=== PATIENT | female | born 1940 | race Hispanic/Latino ===

== ENCOUNTER 2019-04-15 20:44 | Emergency (ER) | payer MEDICARE, SELFPAY ==
[2019-04-15 20:54] VITALS: BP 173/88; PULSE 64; RESP 16; TEMP 36.4; O2SAT 98
--- NOTE | 2019-04-15 21:14 | ED_ITS ---
HPI - Dizziness General Chief Complaint: Dizziness Stated Complaint: dizzy spells Time Seen by Provider: 04/15/19 20:53 Source: patient Mode of arrival: ambulatory Limitations: no limitations History of Present Illness HPI Narrative: Patient is a 78-year-old female who presents with dizzy spells. She states that today she has been having dizzy spells that happen quite frequently but seem to be positional. She says she actually feels it when she is lying down does not really feel it when she is standing up or walking. She denies passing out. She says they last UA for from seconds to minutes. She has been drinking water she has eaten her normally she denies any nausea or vomiting. She has no chest pain or heart palpitations. She has no numbness tingling or weakness. No changes in vision. She does not feel it right now. I did actually have her sit up and she felt it briefly she was able lay back down and it went away. MD complaint: dizziness Description: lightheadedness Related Data Home Medications Medication Instructions Recorded Confirmed VITAMIN D (Vitamin D3) 1,000 unit PO QDAY #0 11/25/10 esomeprazole magnesium [Nexium] 40 mg PO QDAY #0 11/25/10 Previous Rx's Medication Instructions Recorded amoxicillin 500 mg PO Q8H #26 cap 12/09/16 meclizine 25 mg PO TID PRN #10 tab 04/15/19 Allergies Allergy/AdvReac Type Severity Reaction Status Date / Time No Known Allergies Allergy Uncoded 04/15/19 20:58 Review of Systems Review of Systems ROS Unobtainable: All systems reviewed & are unremarkable except as noted in HPI and below Constitutional Constitutional: Denies chills, Denies fever(s), Denies headache(s), Denies lethargy and Denies weakness ENT Ears, Nose, Mouth, and Throat: Reports dizziness and Denies headache(s) Cardiovascular Cardiovascular: Denies chest pain, Denies syncope, Denies rapid heart rate, Denies irregular heart rhythm, Reports lightheadedness, Denies palpitations, Denies dyspnea, Denies dyspnea on exertion and Denies orthopnea Respiratory Respiratory: Denies cough, Denies dyspnea, Denies dyspnea on exertion and Denies wheezing Gastrointestinal Gastrointestinal: Denies abdominal pain, Denies change in bowel habits, Denies diarrhea, Denies nausea and Denies vomiting Genitourinary Genitourinary: Denies hematuria, Denies flank pain, Denies urinary incontinence and Denies urinary urgency Musculoskeletal Musculoskeletal: Denies abnormal gait, Denies back pain, Denies muscle weakness, Denies numbness and Denies tingling Integumentary/Breasts Skin/Breast: Denies pruritus, Denies erythema, Denies rash and Denies wounds Neurologic Neurologic: Denies abnormal gait, Reports dizziness, Denies syncope, Denies headache(s), Denies lack of coordination, Denies focal weakness, Denies numbness, Denies tingling and Denies weakness Endocrine Endocrine: Denies palpitations Allergic/Immunologic Allergic/Immunologic: Denies wheezing [facility] Medical History Patient denies medical problems (Acute) Social History Smoking Status: Former smoker Social History Smoking Status: Former smoker Exam Initial Vital Signs Initial Vital Signs: Vital Signs Temperature 97.5 F L 04/15/19 20:54 Pulse Rate 64 04/15/19 20:54 Respiratory Rate 16 04/15/19 20:54 Blood Pressure 173/88 H 04/15/19 20:54 Pulse Oximetry 98 04/15/19 20:54 GENERAL: Well-appearing, well-nourished and in no acute distress. HEENT: Head atraumatic,EOMI, pupils reactive, face symmetric, moist mucous membranes CARDIOVASCULAR: Regular rate and rhythm without murmurs, rubs or gallops. RESPIRATORY: Breath sounds equal bilaterally, no wheezes rales or rhonchi. ABDOMEN: Soft, nontender. Normoactive bowel sounds all 4 quadrants. No guarding or rebound. EXTREMITIES: Normal range of motion, no clubbing or edema. Neurovascularly intact NEUROLOGICAL: Alert and oriented x4.Normal gait and speech. Cranial nerves II through XII grossly intact. Good rfitec-yk-oaip, good syxk-yk-ldbs, strength equal bilaterally, no dysarthria or aphasia, sensation in tact to soft touch bilaterally, no visual changes, no facial droop SKIN: Warm, dry, no laceration, no petechiae, no rashes or lesions. Scores NIH Stroke Scale Level of Conciousness: Alert, keenly responsive Ask month/age: Answers both questions correctly. Open/close eyes, close hand: Performs both tasks correctly Best gaze horizontal: Normal Visual leone: No visual loss Facial palsy: Normal symetrical movement Left arm drift: No drift for full 10 sec Right arm drift: No drift for full 10 sec Left leg drift: No drift for full 10 sec Right leg drift: No drift for full 10 sec Limb ataxia: Absent Sensory on face/arms/legs: Normal, no sensory loss Best language: No aphasia, normal Dysarthria: Normal Extinction or inattention: No abnormality Total NIH Stroke scale score: 0 Course Orders Ordered: ED Orders 04/15/19 21:07 Complete Blood Count AUTO DIFF Stat Comprehensive Metabolic Panel Stat Discontinued Medications Sodium Chloride (Normal Saline 0.9%) 1,000 mls @ 1,000 mls/hr IV CONT OREN Last Infusion: 04/15/19 22:10 Dose: 1,000 mls/hr Documented by: Admin: 04/15/19 21:16 Dose: 1,000 mls/hr Documented by: MMCFARL Ibuprofen (Advil) 800 mg PO NOW ONE Stop: 04/15/19 22:07 Last Admin: 04/15/19 22:10 Dose: 800 mg Documented by: MMCFARL Meclizine HCl (Antivert) 25 mg PO NOW ONE Stop: 04/15/19 22:07 Last Admin: 04/15/19 22:10 Dose: 25 mg Documented by: MMCFARL Vital Signs Vital signs: Vital Signs - 8 hr 04/15/19 20:54 04/15/19 21:24 Temperature 97.5 F L Pulse Rate 64 60 Respiratory Rate 16 14 Blood Pressure 173/88 H Blood Pressure [Left Arm] 136/70 Pulse Oximetry 98 100 MDM - Dizziness Lab Data Attestation: I reviewed the patient's lab results. Result diagrams: 04/15/19 21:07 04/15/19 21:07 Labs: Lab Results 04/15/19 04/15/19 Range/Units 21:07 21:07 WBC 6.5 (4.5-11.0) X10^3/uL RBC 4.28 (4.0-5.2) X10^6/uL Hgb 13.5 (12.0-16.0) g/dL Hct 40.2 (36-46) % MCV 93.9 (80-100) fL MCH 31.4 (26-34) PG MCHC 33.5 (30-36) % RDW 13.2 (11.6-14.8) % Plt Count 169 (150-400) X10^3/uL Neut % (Auto) 41.5 L (50-75) % Lymph % (Auto) 47.2 H (25-40) % [place] % (Auto) 8.2 (3-14) % Eos % (Auto) 2.3 (2-4) % Baso % (Auto) 0.8 (0-2) % Neut # (Auto) 2700 (6215-0055) /uL Lymph # (Auto) 3100 (1448-6782) /uL [place] # (Auto) 500 (0-900) /uL Eos # (Auto) 200 (0-450) /uL Baso # (Auto) 100 (0-100) /uL Sodium 139 (137-145) mmol/L Potassium 4.1 (3.4-5.1) mmol/L Chloride 106 (98-107) mmol/L Carbon Dioxide 25 (22-32) mmol/L BUN 27 H (7-17) mg/dL Creatinine 0.90 (0.52-1.04) mg/dL Estimated GFR > 60.0 (>60) mL/min BUN/Creatinine Ratio 30.0 H (6-22) Glucose 102 (80-110) mg/dL Calcium 9.4 (8.4-10.2) mg/dL Total Bilirubin 0.4 (0.2-1.3) mg/dL AST 21 (14-36) IU/L ALT 12 (9-52) IU/L Alkaline Phosphatase 44 (38-126) U/L Total Protein 7.2 (6.3-8.2) g/dL Albumin 4.2 (3.5-5.0) g/dL Globulin 3.0 (1.7-4.1) g/dL Albumin/Globulin Ratio 1.4 (1.0-2.8) ECG Data Attestation: I personally reviewed and interpreted this ECG as follows: Prior ECG tracings: not available for review Interpretation: Normal sinus rhythm rate 64 p.r. interval 154 QRS [address] changes no T-wave inversions [facility] Narrative Medical decision making narrative: Patient symptoms are worse whenever she sits up. There reproducible in the emergency department. She is able to roll over onto her side and curl up in position to try and fall sleep. She is able to stand up and ambulate without any difficulty no dizziness. At this time this is likely vertigo. Blood work EKG within. Patient feels ready and able to home. She is given prescription for meclizine needed Discharge Plan Departure Patient Disposition: Home Clinical Impression: Benign paroxysmal vertigo Qualifiers: Laterality: unspecified laterality Qualified Code(s): H81.10 - Benign paroxysmal vertigo, unspecified ear Discharge Date/Time: 04/15/19 22:16 Instructions: DI for Dizziness-Nonvertigo Activity Restrictions/Additional Instructions: *You have been diagnosed with vertigo *What to do: Blood work today is reassuring *Continue to take medications as directed Meclizine 25 mg every 8 hours if needed for disease *Follow up with your primary care provider in 2-3 days *Return to ER if you should have persistent dizziness, weakness, numbness, T or any new, worsening or concerning symptoms Prescriptions: New meclizine 25 mg tablet 25 mg PO TID PRN (Reason: dizziness) Qty: 10 RF: 0 No Action esomeprazole magnesium [Nexium] 40 MG capsule,delayed release(DR/EC) 40 mg PO QDAY Qty: 0 RF: 0 VITAMIN D (Vitamin D3) 1,000 unit PO QDAY Qty: 0 RF: 0 amoxicillin 500 MG capsule 500 mg PO Q8H Qty: 26 RF: 0 Referrals: [facility] [Outside]
[2019-04-15] MEDS: SODIUM CHLORIDE 0.9% 1,000 ML 1000 ML IV (21:16)
[2019-04-15 21:20] LABS: Add Manual Diff / Slide Review NO; Basophils Absolute Auto 100 /uL (0-100); Basophils Percent Auto 0.8 % (0-2); Eosinophils Absolute Auto 200 /uL (0-450); Eosinophils Percent Auto 2.3 % (2-4); Hematocrit 40.2 % (36-46); Hemoglobin 13.5 g/dL (12.0-16.0); Lymphocytes Absolute Auto 3100 /uL (1100-4500); Lymphocytes Percent Auto 47.2 % (25-40); Mean Corpuscular HGB Conc 33.5 % (30-36); Mean Corpuscular Hemoglobin 31.4 PG (26-34); Mean Corpuscular Volume 93.9 fL (80-100); Monocytes Absolute Auto 500 /uL (0-900); Monocytes Percent Auto 8.2 % (3-14); Neutrophils Absolute Auto 2700 /uL (1500-7000); Neutrophils Percent Auto 41.5 % (50-75); Platelet Count 169 X10^3/uL (150-400); Red Blood Cell Count 4.28 X10^6/uL (4.0-5.2); Red Cell Distribution Width 13.2 % (11.6-14.8); White Blood Cell Count 6.5 X10^3/uL (4.5-11.0)
[2019-04-15 21:24] VITALS: BP 136/70; PULSE 60; RESP 14; O2SAT 100
[2019-04-15 21:24] LABS: Alanine Aminotransferase 12 IU/L (9-52); Albumin 4.2 g/dL (3.5-5.0); Albumin Globulin Ratio 1.4 (1.0-2.8); Alkaline Phosphatase 44 U/L (38-126); Aspartate Aminotransferase 21 IU/L (14-36); Bilirubin Total 0.4 mg/dL (0.2-1.3); Blood Urea Nitrogen 27 mg/dL (7-17); Calcium 9.4 mg/dL (8.4-10.2); Carbon Dioxide 25 mmol/L (22-32); Chloride 106 mmol/L (98-107); Estimated Glomerular Filt Rate > 60.0 mL/min (>60); Glucose 102 mg/dL (80-110); HEMOLYSIS < 15 (0-50); Potassium 4.1 mmol/L (3.4-5.1); Sodium 139 mmol/L (137-145); Total Protein 7.2 g/dL (6.3-8.2)
[2019-04-15] MEDS: IBUPROFEN 400 MG TABLET 800 MG PO (22:10)
[2019-04-15] MEDS: MECLIZINE HCL 12.5 MG TABLET 25 MG PO (22:10)
== END 2019-04-15 22:16 | disposition home or self-care (01) ==
PROVIDERS: Emergency Provider Emergency Medicine
DX: H81.10 Benign paroxysmal vertigo, unspecified ear (principal)
CPT/HCPCS: 80053; 85025; 93005; 96360; 99283; 99284

== ENCOUNTER 2020-12-27 18:09 | Emergency (ER) | payer MEDICARE, SELFPAY ==
--- NOTE | 2020-12-27 | DI.RAD.S_ITS ---
PROCEDURE: XR HAND RT MIN 3V INDICATIONS: RIGHT HAND PAIN POST FALL TECHNIQUE: 3 views of the hand(s) acquired. COMPARISON: None. FINDINGS: Bones: No fractures or dislocations. Carpal bones are normally aligned. No suspicious bony lesions. Soft tissues: No suspicious soft tissue calcifications. IMPRESSION: No fracture. No acute osseous lesion. If symptoms and/or clinical suspicion for pathology persists, further assessment with repeat radiographs (7-10 days) or advanced imaging (e.g. CT, MRI or bone scan) should be considered. Dictated by: Azucena Palencia MD, PhD on 12/27/2020 at 18:51 Approved by: Azucena Palencia MD, PhD on 12/27/2020 at 18:52
[2020-12-27 18:12] VITALS: BP 151/73; PULSE 85; RESP 22; TEMP 36.7; O2SAT 97
--- NOTE | 2020-12-27 18:19 | DI.CT.S_ITS ---
PROCEDURE: CT FACIAL BONES WO CON INDICATIONS: fall TECHNIQUE: Noncontrast 2.5 mm thick axial images acquired from the mandible through the frontal sinuses, with coronal and sagittal reformatting. For radiation dose reduction, the following was used: automated exposure control, adjustment of mA and/or kV according to patient size. COMPARISON: [facility], CT, CT HEAD/BRAIN WO CON, 12/27/2020, 18:32. FINDINGS: Image quality: Excellent. Bones and teeth: Orbital barahona are intact. Sinus barahona show no fracture or deformity. Minimally displaced left nasal bone fracture. Nasal septum is intact. Visualized portions of the mandible demonstrate no fractures or subluxation. Zygomatic arches are intact. Pterygoid plates are intact. Visualized portions of the skull base and auditory canals are intact. Sinuses: Mucosal thickening noted in the floor of the right maxillary sinus. Right mastoid air cells are aerated. Postsurgical changes noted in the left mastoids. Soft tissues: No edema, masses, or fluid collections. No enlarged lymph nodes. No soft tissue lacerations or debris. Vascular: Visualized vascular structures appear normal in the absence of contrast. Bony vascular foramina and canals are intact. IMPRESSION: 1. Minimally displaced left nasal bone fracture. 2. Postsurgical changes in the left mastoids. Dictated by: Azucena Palencia MD, PhD on 12/27/2020 at 19:18 Approved by: Azucena Palencia MD, PhD on 12/27/2020 at 19:23
--- NOTE | 2020-12-27 18:19 | DI.CT.S_ITS ---
PROCEDURE: CT CERVICAL SPINE WO CON INDICATIONS: fall TECHNIQUE: Noncontrast 3 mm thick sections acquired from the skull base to the T4 level. Sagittal and coronal reformats were then constructed. For radiation dose reduction, the following was used: automated exposure control, adjustment of mA and/or kV according to patient size. COMPARISON: [facility], CT, CT HEAD/BRAIN WO CON, 12/27/2020, 18:32. FINDINGS: Image quality: Excellent. Bones: No fractures or dislocations. Visualized superior ribs are intact. Postsurgical changes compatible with partial left mastoidectomy noted. Spine degenerative disc disease and facet arthropathy. Soft tissues: Prevertebral soft tissues are normal in thickness. Dystrophic soft tissue calcification noted posterior to the C6 spinous process. No paravertebral hematomas. No apical pneumothoraces. IMPRESSION: No fracture. No acute osseous lesion. If symptoms and/or clinical suspicion for pathology persists, evaluation with MRI should be considered for further assessment. Dictated by: Azucena Palencia MD, PhD on 12/27/2020 at 19:12 Approved by: Azucena Palencia MD, PhD on 12/27/2020 at 19:17
--- NOTE | 2020-12-27 18:19 | DI.CT.S_ITS ---
PROCEDURE: CT HEAD/BRAIN WO CON INDICATIONS: fall TECHNIQUE: Noncontrast 4.5 mm thick angled axial sections acquired from the foramen magnum to the vertex, with coronal and sagittal reformats. For radiation dose reduction, the following was used: automated exposure control, adjustment of mA and/or kV according to patient size. COMPARISON: None. FINDINGS: Image quality: Excellent. CSF spaces: Basal cisterns are patent. No extra-axial fluid collections. The ventricles are symmetric in size and shape. Brain: No intracranial bleeds or masses. There is cerebral volume loss for age, with resultant ventricular and sulcal prominence. There are periventricular and deep white matter chronic small vessel ischemic changes. There is intracranial internal carotid artery atherosclerosis. Skull and face: Calvarium and visualized facial bones appear intact, without suspicious lesions. 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 Sinuses: Visualized sinuses and mastoids are clear. IMPRESSION: No acute intracranial disease process. Dictated by: Azucena Palencia MD, PhD on 12/27/2020 at 18:50 Approved by: Azucena Palencia MD, PhD on 12/27/2020 at 18:51
--- NOTE | 2020-12-27 19:46 | ED.FALL ---
HPI - Fall General Chief Complaint: Fall Stated Complaint: FALL HIT FACE Time Seen by Provider: 12/27/20 19:21 Source: patient Mode of arrival: Ambulatory History of Present Illness HPI Narrative: Patient is a rommel 80-year-old female who presents with a fall on her face. She was walking her daughter's dog when the dog got away she fell forward and hit her face. No loss of consciousness no nausea or vomiting. She has an abrasion on her nose and had some epistaxis she also complains of right knuckle and hand pain but is moving quite well. No neck pain she is not on any antiplatelet or anticoagulation medication MD complaint: fall Onset (ago): hour(s) Fall from: standing Place fall occurred: street Related Data Home Medications Medication Instructions Recorded Confirmed VITAMIN D (Vitamin D3) 1,000 unit PO QDAY #0 11/25/10 esomeprazole magnesium [Nexium] 40 mg PO QDAY #0 11/25/10 Previous Rx's Medication Instructions Recorded amoxicillin 500 mg PO Q8H #26 cap 12/09/16 meclizine 25 mg PO TID PRN #10 tab 04/15/19 Allergies Allergy/AdvReac Type Severity Reaction Status Date / Time No Known Allergies Allergy Uncoded 04/15/19 20:58 Review of Systems Review of Systems Narrative: GENERAL: Denies chills, fatigue, malaise, fever, sweats, travel HEENT: Epistaxis nose pain RESPIRATORY: Denies dyspnea, cough, wheezing, hemoptysis, sputum. CARDIOVASCULAR: Denies chest pain, palpitations, orthopnea, edema GASTROINTESTINAL: Denies nausea, vomiting, abdominal pain, diarrhea, constipation, melena. : Denies dysuria, frequency, incontinence, hematuria, urinary retention, flank pain. MUSCULOSKELETAL: See HPI SKIN: No rash, no erythema, no pruritus NEUROLOGIC: Denies weakness, dizziness, headache, numbness, change in speech, confusion PSYCHIATRIC: No concerning psychosocial issues. 12 point review of systems is negative except for those stated above and HPI Patient History Medical History (Updated 12/28/20 @ 08:05 by Nelly Shea DO) Patient denies medical problems Social History Smoking Status: Former smoker Smoking Status: Former smoker alcohol intake frequency: 0-2 drinks per day Substance Use Type: does not use Exam Initial Vital Signs Initial Vital Signs: Vital Signs Temperature 98.1 F 12/27/20 18:12 Pulse Rate 85 12/27/20 18:12 Respiratory Rate 22 12/27/20 18:12 Blood Pressure 151/73 H 12/27/20 18:12 Pulse Oximetry 97 12/27/20 18:12 GENERAL: Alert very pleasant well-appearing 80-year-old female HEENT: Head atraumatic,EOMI, pupils reactive, face symmetric, [moist] mucous membranes Abrasion noted on nose epistaxis now stopping controlled no septal hematoma NECK: No vertebral tenderness no step-off CARDIOVASCULAR: Regular rate and rhythm without murmurs, rubs or gallops. RESPIRATORY: Breath sounds equal bilaterally, no wheezes rales or rhonchi. ABDOMEN: Soft, nontender. Normoactive bowel sounds all 4 quadrants. No guarding or rebound. EXTREMITIES: Normal range of motion, no clubbing or edema. Neurovascularly intact Right wrist no gross bony deformity NEUROLOGICAL: Alert and oriented x4.Normal gait and speech. Cranial nerves II through XII grossly intact. [employer] strength equal bilaterally SKIN: Warm, dry, no laceration, no petechiae, no rashes or lesions. Course Orders Ordered: ED Orders 12/27/20 18:19 CT cervical spine wo con Stat CT facial bones wo con Stat CT head/brain wo con Stat Vital Signs Vital signs: Vital Signs - 8 hr 12/27/20 18:12 Temperature 98.1 F Pulse Rate 85 Respiratory Rate 22 Blood Pressure 151/73 H Pulse Oximetry 97 MDM - Fall Imaging Data CT scan - head: Radiologist's Impression: PROCEDURE: CT HEAD/BRAIN WO CON INDICATIONS: fall TECHNIQUE: Noncontrast 4.5 mm thick angled axial sections acquired from the foramen magnum to the vertex, with coronal and sagittal reformats. For radiation dose reduction, the following was used: automated exposure control, adjustment of mA and/or kV according to patient size. COMPARISON: None. FINDINGS: Image quality: Excellent. CSF spaces: Basal cisterns are patent. No extra-axial fluid collections. The ventricles are symmetric in size and shape. Brain: No intracranial bleeds or masses. There is cerebral volume loss for age, with resultant ventricular and sulcal prominence. There are periventricular and deep white matter chronic small vessel ischemic changes. There is intracranial internal carotid artery atherosclerosis. Skull and face: Calvarium and visualized facial bones appear intact, without suspicious lesions. 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 Sinuses: Visualized sinuses and mastoids are clear. IMPRESSION: No acute intracranial disease process. Dictated by: Azucena Palencia MD, PhD on 12/27/2020 at 18:50 CT - cervical spine: Radiologist's Impression: PROCEDURE: CT CERVICAL SPINE WO CON INDICATIONS: fall TECHNIQUE: Noncontrast 3 mm thick sections acquired from the skull base to the T4 level. Sagittal and coronal reformats were then constructed. For radiation dose reduction, the following was used: automated exposure control, adjustment of mA and/or kV according to patient size. COMPARISON: [facility] CT, CT HEAD/BRAIN WO CON, 12/27/2020, 18:32. FINDINGS: Image quality: Excellent. Bones: No fractures or dislocations. Visualized superior ribs are intact. Postsurgical changes compatible with partial left mastoidectomy noted. Spine degenerative disc disease and facet arthropathy. Soft tissues: Prevertebral soft tissues are normal in thickness. Dystrophic soft tissue calcification noted posterior to the C6 spinous process. No paravertebral hematomas. No apical pneumothoraces. IMPRESSION: No fracture. No acute osseous lesion. If symptoms and/or clinical suspicion for pathology persists, evaluation with MRI should be considered for further assessment. Dictated by: Azucena Palencia MD, PhD on 12/27/2020 at 19:12 ct Face: Radiologist's Impression: PROCEDURE: CT FACIAL BONES WO CON INDICATIONS: fall TECHNIQUE: Noncontrast 2.5 mm thick axial images acquired from the mandible through the frontal sinuses, with coronal and sagittal reformatting. For radiation dose reduction, the following was used: automated exposure control, adjustment of mA and/or kV according to patient size. COMPARISON: [facility], CT, CT HEAD/BRAIN WO CON, 12/27/2020, 18:32. FINDINGS: Image quality: Excellent. Bones and teeth: Orbital barahona are intact. Sinus barahona show no fracture or deformity. Minimally displaced left nasal bone fracture. Nasal septum is intact. Visualized portions of the mandible demonstrate no fractures or subluxation. Zygomatic arches are intact. Pterygoid plates are intact. Visualized portions of the skull base and auditory canals are intact. Sinuses: Mucosal thickening noted in the floor of the right maxillary sinus. Right mastoid air cells are aerated. Postsurgical changes noted in the left mastoids. Soft tissues: No edema, masses, or fluid collections. No enlarged lymph nodes. No soft tissue lacerations or debris. Vascular: Visualized vascular structures appear normal in the absence of contrast. Bony vascular foramina and canals are intact. IMPRESSION: 1. Minimally displaced left nasal bone fracture. 2. Postsurgical changes in the left mastoids. Dictated by: Azucena Palencia MD, PhD on 12/27/2020 at 19:18 Extremity x-ray #1: Radiologist's Impression: PROCEDURE: XR HAND RT MIN 3V INDICATIONS: RIGHT HAND PAIN POST FALL TECHNIQUE: 3 views of the hand(s) acquired. COMPARISON: None. FINDINGS: Bones: No fractures or dislocations. Carpal bones are normally aligned. No suspicious bony lesions. Soft tissues: No suspicious soft tissue calcifications. IMPRESSION: No fracture. No acute osseous lesion. If symptoms and/or clinical suspicion for pathology persists, further assessment with repeat radiographs (7-10 days) or advanced imaging (e.g. CT, MRI or bone scan) should be considered. Dictated by: Azucena Palencia MD, PhD on 12/27/2020 at 18:51 [facility] Narrative Medical decision making narrative: The patient overall appears very well she has a small abrasion on the bridge of her nose. Found to have mildly displaced nasal bone fracture. I discussed all findings with the patient, Education has been performed regarding treatment plan, diagnosis, warning signs and symptoms and all concerns have been addressed. Verbally agree with and understood all of the above. Discharge Plan Departure Patient Disposition: Home Clinical Impression: Closed fracture nasal bone Qualifiers: Encounter type: initial encounter Qualified Code(s): S02.2XXA - Fracture of nasal bones, initial encounter for closed fracture Closed head injury Qualifiers: Encounter type: initial encounter Qualified Code(s): S09.90XA - Unspecified injury of head, initial encounter Instructions: Nose Fracture, Concussion Activity Restrictions/Additional Instructions: *You have been diagnosed with nose fracture, *What to do: Do not blow nose dap only. Your his nose will heal on its own, you may follow-up with ENT as needed treated closed head injury. You may noticed that you have headache and some mild nausea and be sensitive to light these are associated with concussion syndrome *Continue to take medications as directed Tylenol 1000 mg 6 hours if needed for [id number] pain Ibuprofen 600 mg every 6 hours if needed for [id number] *Follow up with your primary care provider in 2-3 days Call ENT tomorrow schedule follow-up appointment in about 1 week *Return to ER if you should have worsening headache persistent vomiting, weakness, confusion or any new, worsening or concerning symptoms Prescriptions: No Action esomeprazole magnesium [Nexium] 40 MG capsule,delayed release(DR/EC) 40 mg PO QDAY Qty: 0 RF: 0 VITAMIN D (Vitamin D3) 1,000 unit PO QDAY Qty: 0 RF: 0 amoxicillin 500 MG capsule 500 mg PO Q8H Qty: 26 RF: 0 meclizine 25 mg tablet 25 mg PO TID PRN (Reason: dizziness) Qty: 10 RF: 0
[2020-12-27 20:18] VITALS: BP 137/70; PULSE 69; RESP 12; O2SAT 98
== END 2020-12-27 20:18 | disposition home or self-care (01) ==
PROVIDERS: Emergency Provider Emergency Medicine
DX: S02.2XXA Fracture of nasal bones, initial encounter for closed fracture (principal); S09.90XA Unspecified injury of head, initial encounter; W19.XXXA Unspecified fall, initial encounter
CPT/HCPCS: 70450; 70486; 72125; 73130; 99283; 99284; Q9967

== ENCOUNTER → 2021-04-19 12:23 | Outpatient (CLI) | payer MEDICARE, SELFPAY | PROVIDERS: PCP Internal Medicine; Referring Provider Internal Medicine; Visit Provider Internal Medicine | DX: M85.852 Other specified disorders of bone density and structure, left thigh (principal); M85.851 Other specified disorders of bone density and structure, right thigh; M85.88 Other specified disorders of bone density and structure, other site | CPT/HCPCS: 77080 ==

== ENCOUNTER 2022-03-27 17:04 | Emergency (ER) | payer OTHER, SELFPAY ==
[2022-03-27 17:11] VITALS: BP 137/64; PULSE 92; RESP 16; TEMP 35.5; O2SAT 98; BMI 26.4
--- NOTE | 2022-03-27 17:14 | DI.RAD.S_ITS ---
PROCEDURE: XR CHEST 2V INDICATIONS: persistant cough one week TECHNIQUE: 2 views of the chest were acquired. COMPARISON: None. FINDINGS: Surgical changes and devices: None. Lungs and pleura: Lungs are clear. No pleural effusions or pneumothorax. Mediastinum: Mediastinal contours are normal. Heart size is normal. Bones and chest wall: No suspicious bony abnormalities. Soft tissues appear unremarkable. IMPRESSION: No acute cardiopulmonary abnormalities or focal airspace disease. Dictated by: Juan Gonzalez M.D. on 03/27/2022 at 17:31 Approved by: Juan Gonzalez M.D. on 03/27/2022 at 17:31
[2022-03-27 17:40] LABS: COVID19 -Nasal RAPID Negative (Negative)
== END 2022-03-27 21:10 | disposition left against medical advice (07) ==
PROVIDERS: Family Medicine Addiction Medicine; Emergency Provider Emergency Medicine; PCP Internal Medicine
DX: R50.9 Fever, unspecified (principal); Z20.822 Contact with and (suspected) exposure to COVID-19
CPT/HCPCS: 71046; 87635; 99283; C9803

== ENCOUNTER → 2022-04-06 11:10 | Outpatient (CLI) | payer MEDICARE, SELFPAY | PROVIDERS: PCP Internal Medicine; Visit Provider Registered Nurse | DX: B97.89 Other viral agents as the cause of diseases classified elsewhere (principal); J02.8 Acute pharyngitis due to other specified organisms | CPT/HCPCS: 87070 ==

== ENCOUNTER → 2022-09-17 11:30 | Outpatient (CLI) | payer MEDICARE, SELFPAY ==
[2022-09-17 12:33] LABS: Influenza A - CEPHEID Flu A NEGATIVE (NEGATIVE); Influenza B - CEPHEID Flu B NEGATIVE (NEGATIVE); Respiratory Syncytial Virus Negative (Negative)
[2022-09-17 13:06] LABS: COVID-19 CEPHEID 4-PLEX PCR Negative (Negative)
== END ==
PROVIDERS: PCP Internal Medicine; Visit Provider Nurse Practitioner Family
DX: J02.9 Acute pharyngitis, unspecified (principal); R05.8 Other specified cough
CPT/HCPCS: 0241U

== ENCOUNTER → 2023-08-14 17:30 | Outpatient (CLI) | payer OTHER, SELFPAY | PROVIDERS: PCP Internal Medicine; Visit Provider Physician Assistant | DX: J02.9 Acute pharyngitis, unspecified (principal) | CPT/HCPCS: 87070 ==

== ENCOUNTER → 2023-11-22 09:54 | Outpatient (CLI) | payer MEDICARE, SELFPAY ==
--- NOTE | 2023-11-22 09:55 | DI.RAD.S_ITS ---
PROCEDURE: XR DEXA AXIAL SKELETON INDICATIONS: post menopausal osteoporosis COMPARISON: CR, XR DEXA AXIAL SKELETON, 04/19/2021, 12:55. FINDINGS: Lumbar Spine: L1, L2, L4 Bone mineral density 0.950 g/cm2, T score -0.8. Left Hip: Bone mineral density 0.812 g/cm2, T score -1.1. Left Femoral Neck: Bone mineral density 0.595 g/cm2, T score -2.3. Right Hip: Bone mineral density 0.777 g/cm2, T score -1.3. Right Femoral Neck: Bone mineral density 0.600 g/cm2, T score -2.2. Fracture Risk Calculation (when applicable): 10-year fracture risk of a major osteoporotic fracture 17% and of a hip fracture 5.6%. (T score greater or equal to -1.0 to: NORMAL) (T score from -1.1 to -2.4: OSTEOPENIA) (T score less than or equal to -2.5: OSTEOPOROSIS) IMPRESSION: Osteopenia Follow-up guidelines as follows: Osteoporosis: Consider a repeat DEXA and Vertebral Fracture Assessment (VFA) exam in 2 years or sooner if medically necessary, to reassess this patient's status. Osteopenia: Consider a repeat DEXA in 2-3 years to reassess this patient's status, or if there is a new clinical indication. Normal: Consider a repeat DEXA in 5 years or sooner, or if there is a new clinical indication. Dictated by: Jason Valle M.D. on 11/22/2023 at 22:02 Approved by: Jason Valle M.D. on 11/22/2023 at 22:04
== END ==
PROVIDERS: PCP Nurse Practitioner; Referring Provider Nurse Practitioner; Visit Provider Nurse Practitioner
DX: M81.0 Age-related osteoporosis without current pathological fracture (principal)
CPT/HCPCS: 77080

== ENCOUNTER 2023-12-31 06:51 | Emergency (ER) | payer MEDICARE, SELFPAY ==
[2023-12-31] VITALS (8 sets, daily range): BP systolic 111–161; BP diastolic 59–99; PULSE 55–75; RESP 16; TEMP 36.3; O2SAT 93–99; BMI 25.7
--- NOTE | 2023-12-31 07:07 | ED_ITS ---
HPI - Chest Pain General Chief Complaint: Chest Pain Stated Complaint: thinks has a broken rib L side Time Seen by Provider: 12/31/23 07:07 Source: patient Mode of arrival: Ambulatory Limitations: no limitations History of Present Illness HPI narrative: 83-year-old female with left lower chest and left flank pain for 3 days, after her fell on her walking down a slope. She was assisting her down a slope near her home who was using a cane, when she leaned down to pick something up, lost his balance, fell on top of her, causing her to fall to her left side, impacting her left chest on the ground 3 days ago, with persisting left lower chest left lateral chest and left flank pain since that time. She has not taken any [id number] medications to help with the pain. She has difficulty sleeping due to the pain. She denies blood in urine. She denies blood in the stool. She denies shortness of breath. Chest pain is with movements and deep breathing. She denies taking blood thinner medications. Related Data Home Medications Medication Instructions Recorded Confirmed Lanzoprazole 30 mg PO .QD 11/07/23 12/25/23 b12 concentrate See Rx Instructions .Route .COMPLEX 11/07/23 12/25/23 cholecalciferol (vitamin D3) 25 75 mcg PO DAILY 11/07/23 12/25/23 mcg (1,000 unit) capsule magnesium See Rx Instructions .Route .COMPLEX 11/07/23 12/25/23 Allergies Allergy/AdvReac Type Severity Reaction Status Date / Time No Known Allergies Allergy Uncoded 12/25/23 15:34 Review of Systems Review of Systems Narrative: as per HPI Patient History Medical History (Updated 12/31/23 @ 10:32 by Eliel Pereira MD) Osteopenia after menopause Hearing loss (~1985) GERD (gastroesophageal reflux disease) Surgical History Anesthesia History of appendectomy (~1949) Cholesteatoma (~1985) Family History Father History of heart disease Mother Cancer Brother History of kidney disease Social History Smoking Status: Former smoker Smoking Status: Former smoker alcohol intake frequency: 0-2 drinks per day Substance Use Type: does not use Exam Narrative Exam Narrative: GENERAL:Well-developed patient, in mild distress. HEAD: Atraumatic. Normocephalic. EYES: Pupils equal round and reactive. Extraocular motions intact. No scleral icterus. No injection or drainage. ENT: Nose without bleeding, purulent drainage. Throat without erythema, tonsillar hypertrophy or exudate. Airway patent. NECK: Trachea midline. Non tender CARDIOVASCULAR: Regular rate and rhythm without murmurs, gallops, or rubs. RESPIRATORY: Clear to auscultation. Some tenderness to left costal margin anteriorly, also laterally, no bruises or crepitance or subcutaneous emphysema, no retractions, no paradoxical segment movements. Breath sounds equal bilaterally. No wheezes, rales, or rhonchi. GASTROINTESTINAL: Abdomen soft, has some tenderness left upper quadrant, no guarding or rebound, nondistended. No skin changes, abrasions, contusions EXTREMITIES: No edema or joint tenderness. BACK: Nontender without deformity or crepitance. No flank tenderness. NEURO: AOx3. SKIN: No rash or erythema of visible areas Initial Vital Signs Initial Vital Signs: Vital Signs Temperature 97.3 F L 12/31/23 07:02 Pulse Rate 75 12/31/23 07:02 Respiratory Rate 16 12/31/23 07:02 Blood Pressure 127/78 12/31/23 07:02 Pulse Oximetry 97 12/31/23 07:02 Oxygen Delivery Method Room Air 12/31/23 07:02 Course Orders Ordered: Discontinued Medications Tramadol HCl (Tramadol 50 Mg Prepack) 1 bottle MISC DIRECTED ONE Stop: 12/31/23 10:33 Last Admin: 12/31/23 11:19 Dose: 1 bottle Documented By: Vital Signs Vital signs: Vital Signs - 8 hr 12/31/23 07:02 12/31/23 08:31 12/31/23 08:33 Temperature 97.3 F L Pulse Rate 75 63 59 L Respiratory Rate 16 Blood Pressure 127/78 Pulse Oximetry 97 96 98 Oxygen Delivery Method Room Air 12/31/23 08:33 12/31/23 09:00 12/31/23 09:00 Temperature Pulse Rate 58 L Respiratory Rate Blood Pressure 153/59 H 161/99 H Pulse Oximetry 99 Oxygen Delivery Method 12/31/23 09:30 12/31/23 09:31 12/31/23 10:28 Temperature Pulse Rate 55 L 57 L 57 L Respiratory Rate Blood Pressure Pulse Oximetry 95 94 93 Oxygen Delivery Method 12/31/23 10:30 12/31/23 10:30 Temperature Pulse Rate 58 L Respiratory Rate Blood Pressure 111/75 Pulse Oximetry Oxygen Delivery Method MDM - Chest Pain Lab Data Attestation: I reviewed the patient's lab results. 12/31/23 08:30 12/31/23 08:30 Labs: Lab Results 12/31/23 Range/Units 08:30 WBC 4.8 (4.5-11.0) X10^3/uL RBC 4.24 (4.0-5.2) X10^6/uL Hgb 13.3 (12.0-16.0) g/dL Hct 40.1 (36-46) % MCV 94.5 (80-100) fL MCH 31.4 (26-34) PG MCHC 33.3 (30-36) % RDW 13.1 (11.6-14.8) % Plt Count 179 (150-400) X10^3/uL Neut % (Auto) 51.3 (50-75) % Lymph % (Auto) 35.6 (25-40) % Tillman % (Auto) 9.7 (3-14) % Eos % (Auto) 2.6 (2-4) % Baso % (Auto) 0.8 (0-2) % Neut # (Auto) 2500 (1198-2449) /uL Lymph # (Auto) 1700 (0394-3701) /uL Tillman # (Auto) 500 (0-900) /uL Eos # (Auto) 100 (0-450) /uL Baso # (Auto) 0 (0-100) /uL PT 11.5 (9.4-12.5) SECONDS INR 1.0 (0.9-1.3) Sodium 140 (137-145) mmol/L Potassium 4.4 (3.4-5.1) mmol/L Chloride 109 H (98-107) mmol/L Carbon Dioxide 28 (22-32) mmol/L BUN 14 (7-17) mg/dL Creatinine 0.82 (0.52-1.04) mg/dL Estimated GFR > 60 (>60) mL/min BUN/Creatinine Ratio 17.1 (6-22) Glucose 99 (80-110) mg/dL Calcium 8.8 (8.4-10.2) mg/dL Total Bilirubin 0.7 (0.2-1.3) mg/dL AST 23 (14-36) IU/L ALT 16 (<35) IU/L Alkaline Phosphatase 56 (38-126) U/L Total Protein 7.0 (6.3-8.2) g/dL Albumin 4.2 (3.5-5.0) g/dL Globulin 2.8 (1.7-4.1) g/dL Albumin/Globulin Ratio 1.5 (1.0-2.8) Lipase 83 (23-300) U/L Imaging Data Chest x-ray: Radiologist's Impression: [address] [address] XRay Report Signed Patient: Asia Noriega MR#: [id number] : 1940 Acct:[id number] Age/Sex: 83 / F Date of Service: 12/31/23 Loc: ED Accession Number: [id number] Procedure: XR ribs LT min 3V w CXR1V Ordering Provider: Eliel Pereira MD PROCEDURE: XR RIBS LT MIN 3V W CXR1V INDICATIONS: fell on her, left chest wall pain TECHNIQUE: 2 views of the ribs were acquired, along with a single view chest. COMPARISON: None. FINDINGS: Surgical changes and devices: None. Bones and chest wall: Possible non-displaced anterior left 10th rib fracture. This correlates with BB skin marker denoting area of pain. No dislocations. No suspicious bony lesions. Overlying soft tissues appear unremarkable. Lungs and pleura: No pleural effusions or pneumothorax. Lungs appear clear. Mediastinum: Mediastinal contours appear normal. Heart size is normal. IMPRESSION: Possible non-displaced anterior left 10th rib fracture. No pneumothorax. Dictated by: Juan Gonzalez M.D. on 12/31/2023 at 7:57 Approved by: Juan Gonzalez M.D. on 12/31/2023 at 8:02 CT scan - abdomen/pelvis: Radiologist's Impression: [address] [address] [address] Scan Report Signed Patient: Asia Noriega MR#: [id number] : 1940 Acct:[id number] Age/Sex: 83 / F Date of Service: 12/31/23 Loc: ED Accession Number: [id number] Procedure: CT abdomen pelvis w con Ordering Provider: Eliel Pereira MD PROCEDURE: CT ABDOMEN PELVIS W CON INDICATIONS: recent trauma TECHNIQUE: After the administration of intravenous contrast, axial sections acquired from the lung bases to the pubic symphysis. Coronal and sagittal reformats were performed. For radiation dose reduction, the following was used: automated exposure control, adjustment of mA and/or kV according to patient size. COMPARISON: None. FINDINGS: Image quality: Diagnostic. Lower Chest: No significant findings. ABDOMEN: Liver: No solid mass. Gallbladder: No radiopaque gallstones or wall thickening. Biliary ducts: No biliary dilation. Pancreas: No ductal dilation. Spleen: Size is within normal limits. Adrenal Glands: No adrenal nodules. Kidneys and Ureters: No hydronephrosis. No solid mass. No complex renal cystic lesion which requires follow up. Stomach and Bowel: Normal colonic caliber, without significant wall thickening. Peritoneum: No abnormal intraperitoneal fluid. No free air. Ventral Wall: No significant ventral hernia. Abdominal Nodes: No retroperitoneal or mesenteric adenopathy by size criteria. Vessels: Aorta and inferior vena cava are normal in size. PELVIS: Pelvic Organs: Unremarkable. Bladder: No bladder wall thickening, accounting for underdistention. Pelvic Nodes: No enlarged lymph nodes. Miscellaneous: No inguinal hernias are seen. Bones: No aggressive osseous abnormality. IMPRESSION: No visualized osseous or visceral traumatic injury. Dictated by: Catalina Saunders M.D. on 12/31/2023 at 10:23 Approved by: Catalina Saunders M.D. on 12/31/2023 at 10:35 [facility] Narrative Medical decision making narrative: 83-year-old female with ground level fall, fell on top of her 3 days ago, with persisting pain and some tenderness left upper quadrant abdomen, left lower costal margin anterior chest, left mid axillary line, left flank, no skin changes or bruising. DX consider chest wall injury, rib fracture, consider underlying injury to spleen/kidney. Labs including urinalysis and coagulation studies. Chest x-ray requested, CT abdomen and pelvis imaging with IV contrast if GFR favorable, noncontrast imaging if non favorable. She declines pain medication when directly asked. Chest x-ray with left rib series suspicious for left lateral 10th rib nondisplaced fracture, no pneumothorax/hemothorax or pulmonary contusion changes. Low left rib fracture, concern for underlying injury to spleen/renal systems, anticipate further imaging with CT, awaiting creatinine/GFR to see if IV contrast can be used. GFR favorable, CT abdomen and pelvis with IV contrast imaging ordered. CT showed no acute abnormality. See radiologist's report. Discharge with pain medication, encouraged deep breathing, incentive spirometry for use at home while awake, recheck lung exam and pain control symptoms with regular provider in the next couple of days, return precautions discussed Critical Care Time Critical Care Time Critical Care Time: Yes Total Critical Care Time: 31 Attestation: The high probability of a clinically significant, sudden or life threatening deterioration of the [cardiopulmonary] system(s) required my full and direct attention, intervention and personal management. The aggregate critical care time was [31] minutes. This time is in addition to time spent performing reported procedures but includes the following: [x] Data Review and interpretation x] Patient assessment and monitoring of vital signs [x] Documentation [x] Medication orders and management Discharge Plan Departure Patient Disposition: Home Clinical Impression: Left rib fracture, Left-sided chest wall pain Prescriptions: No Action Lanzoprazole 30 mg PO .QD cholecalciferol (vitamin D3) 25 mcg (1,000 unit) capsule 75 mcg PO DAILY b12 concentrate See Rx Instructions .ROUTE .COMPLEX Rx Instructions: Take daily; magnesium See Rx Instructions .ROUTE .COMPLEX Rx Instructions: Take 1 tab daily; Referrals: Dina York ARNP [Primary Care Provider] - Stand Alone Forms: Patient Portal/API
--- NOTE | 2023-12-31 07:16 | DI.RAD.S_ITS ---
PROCEDURE: XR RIBS LT MIN 3V W CXR1V INDICATIONS: fell on her, left chest wall pain TECHNIQUE: 2 views of the ribs were acquired, along with a single view chest. COMPARISON: None. FINDINGS: Surgical changes and devices: None. Bones and chest wall: Possible non-displaced anterior left 10th rib fracture. This correlates with BB skin marker denoting area of pain. No dislocations. No suspicious bony lesions. Overlying soft tissues appear unremarkable. Lungs and pleura: No pleural effusions or pneumothorax. Lungs appear clear. Mediastinum: Mediastinal contours appear normal. Heart size is normal. IMPRESSION: Possible non-displaced anterior left 10th rib fracture. No pneumothorax. Dictated by: Juan Gonzalze M.D. on 12/31/2023 at 7:57 Approved by: Juan Gonzalez M.D. on 12/31/2023 at 8:02
[2023-12-31 08:38] LABS: Add Manual Diff / Slide Review NO; Basophils Absolute Auto 0 /uL (0-100); Basophils Percent Auto 0.8 % (0-2); Eosinophils Absolute Auto 100 /uL (0-450); Eosinophils Percent Auto 2.6 % (2-4); Hematocrit 40.1 % (36-46); Hemoglobin 13.3 g/dL (12.0-16.0); Lymphocytes Absolute Auto 1700 /uL (1100-4500); Lymphocytes Percent Auto 35.6 % (25-40); Mean Corpuscular HGB Conc 33.3 % (30-36); Mean Corpuscular Hemoglobin 31.4 PG (26-34); Mean Corpuscular Volume 94.5 fL (80-100); Monocytes Absolute Auto 500 /uL (0-900); Monocytes Percent Auto 9.7 % (3-14); Neutrophils Absolute Auto 2500 /uL (1500-7000); Neutrophils Percent Auto 51.3 % (50-75); Platelet Count 179 X10^3/uL (150-400); Red Blood Cell Count 4.24 X10^6/uL (4.0-5.2); Red Cell Distribution Width 13.1 % (11.6-14.8); White Blood Cell Count 4.8 X10^3/uL (4.5-11.0)
[2023-12-31 08:44] LABS: Prothrombin Time 11.5 SECONDS (9.4-12.5)
[2023-12-31 08:48] LABS: Alanine Aminotransferase 16 IU/L (<35); Albumin 4.2 g/dL (3.5-5.0); Albumin Globulin Ratio 1.5 (1.0-2.8); Alkaline Phosphatase 56 U/L (38-126); Aspartate Aminotransferase 23 IU/L (14-36); BUN Creatinine Ratio 17.1 (6-22); Bilirubin Total 0.7 mg/dL (0.2-1.3); Blood Urea Nitrogen 14 mg/dL (7-17); Calcium 8.8 mg/dL (8.4-10.2); Carbon Dioxide 28 mmol/L (22-32); Chloride 109 mmol/L (98-107); Estimated Glomerular Filt Rate > 60 mL/min (>60); Globulin 2.8 g/dL (1.7-4.1); Glucose 99 mg/dL (80-110); HEMOLYSIS < 15 (0-50); Lipase 83 U/L (23-300); Potassium 4.4 mmol/L (3.4-5.1); Sodium 140 mmol/L (137-145)
--- NOTE | 2023-12-31 09:08 | DI.CT.S_ITS ---
PROCEDURE: CT ABDOMEN PELVIS W CON INDICATIONS: recent trauma TECHNIQUE: After the administration of intravenous contrast, axial sections acquired from the lung bases to the pubic symphysis. Coronal and sagittal reformats were performed. For radiation dose reduction, the following was used: automated exposure control, adjustment of mA and/or kV according to patient size. COMPARISON: None. FINDINGS: Image quality: Diagnostic. Lower Chest: No significant findings. ABDOMEN: Liver: No solid mass. Gallbladder: No radiopaque gallstones or wall thickening. Biliary ducts: No biliary dilation. Pancreas: No ductal dilation. Spleen: Size is within normal limits. Adrenal Glands: No adrenal nodules. Kidneys and Ureters: No hydronephrosis. No solid mass. No complex renal cystic lesion which requires follow up. Stomach and Bowel: Normal colonic caliber, without significant wall thickening. Peritoneum: No abnormal intraperitoneal fluid. No free air. Ventral Wall: No significant ventral hernia. Abdominal Nodes: No retroperitoneal or mesenteric adenopathy by size criteria. Vessels: Aorta and inferior vena cava are normal in size. PELVIS: Pelvic Organs: Unremarkable. Bladder: No bladder wall thickening, accounting for underdistention. Pelvic Nodes: No enlarged lymph nodes. Miscellaneous: No inguinal hernias are seen. Bones: No aggressive osseous abnormality. IMPRESSION: No visualized osseous or visceral traumatic injury. Dictated by: Catalina Saunders M.D. on 12/31/2023 at 10:23 Approved by: Catalina Saunders M.D. on 12/31/2023 at 10:35
[2023-12-31] MEDS: TRAMADOL 50 MG PREPACK 1 BOTTLE MISC (11:19)
== END 2023-12-31 11:29 | disposition home or self-care (01) ==
PROVIDERS: Emergency Provider Emergency Medicine; PCP Nurse Practitioner
DX: S22.32XA Fracture of one rib, left side, initial encounter for closed fracture (principal); W18.30XA Fall on same level, unspecified, initial encounter; R07.89 Other chest pain
CPT/HCPCS: 36415; 71101; 74177; 80053; 83690; 85025; 85610; 99284; Q9967

== ENCOUNTER → 2024-01-09 11:54 | Outpatient (CLI) | payer MEDICARE, SELFPAY ==
--- NOTE | 2024-01-09 11:59 | DI.RAD.S_ITS ---
PROCEDURE: XR HAND LT MIN 3V INDICATIONS: pain in left hand, Lt fifth finger s/p fall injury TECHNIQUE: 3 views of the hand(s) acquired. COMPARISON: [facility], CR, XR WRIST LT MIN 3V, 01/09/2024, 11:17. [facility], CR, XR HAND RT MIN 3V, 12/27/2020, 18:33. FINDINGS: Bones: Diffuse osteopenia. No fractures or dislocations at the hand. Advanced arthritic change involving the wrist. Soft tissues: No suspicious soft tissue calcifications. IMPRESSION: Diffuse osteopenia. No fractures or dislocations the hand. Advanced arthritic change of the wrist. Dictated by: Sotero Ward M.D. on 01/09/2024 at 12:49 Approved by: Sotero Ward M.D. on 01/09/2024 at 12:51
--- NOTE | 2024-01-09 11:59 | DI.RAD.S_ITS ---
PROCEDURE: XR WRIST LT MIN 3V INDICATIONS: pain in left hand, Lt fifth finger s/p fall injury TECHNIQUE: 4 views of the wrist were acquired. COMPARISON: None. FINDINGS: Bones: Severe arthritic changes are present at the radiocarpal and radial ulnar joint spaces. There is impaction of the distal radius upon the scaphoid. The scaphoid demonstrates mid waist lucency. In addition, irregularity is noted at the distal radial articular surface. Soft tissues: No suspicious soft tissue calcifications. IMPRESSION: Severe arthritic changes, limiting evaluation. There is lucency within the scaphoid waist. While this could represent old nonunion secondary to prior trauma, given history of recent fall, recommend correlation to point tenderness. If concern persists, short interval x-ray follow-up or CT may be obtained. Dictated by: Catalina Saunders M.D. on 01/09/2024 at 12:58 Approved by: Catalina Saunders M.D. on 01/09/2024 at 13:01
== END ==
PROVIDERS: PCP Nurse Practitioner; Referring Provider Nurse Practitioner; Visit Provider Nurse Practitioner
DX: M79.642 Pain in left hand (principal); M79.645 Pain in left finger(s); M85.842 Other specified disorders of bone density and structure, left hand; Z78.0 Asymptomatic menopausal state
CPT/HCPCS: 73110; 73130

== ENCOUNTER → 2024-01-25 10:49 | Outpatient (CLI) | payer MEDICARE, SELFPAY ==
--- NOTE | 2024-01-25 10:50 | DI.RAD.S_ITS ---
PROCEDURE: XR ANKLE RT MIN 3V INDICATIONS: Fall TECHNIQUE: 3 views of the ankle were acquired. COMPARISON: None. FINDINGS: Bones: No fractures or dislocations. Ankle mortise is normally aligned. No suspicious bony lesions. Soft tissues: No tibiotalar joint effusion. Achilles tendon appears normal. IMPRESSION: No acute bony abnormality or significant effusion. Approved by: Erick Montes M.D. on 01/25/2024 at 18:39
--- NOTE | 2024-01-25 10:50 | DI.RAD.S_ITS ---
PROCEDURE: XR FOOT RT MIN 3V INDICATIONS: Fall TECHNIQUE: 3 views of the foot were acquired. COMPARISON: None. FINDINGS: Bones: No fractures or dislocations. No suspicious bony lesions. Soft tissues: No tibiotalar joint effusion. Achilles tendon appears normal. IMPRESSION: No acute bony abnormality. Approved by: Erick Montes M.D. on 01/25/2024 at 18:36
== END ==
PROVIDERS: PCP Nurse Practitioner; Referring Provider Nurse Practitioner Family; Visit Provider Nurse Practitioner Family
DX: M79.604 Pain in right leg (principal)
CPT/HCPCS: 73610; 73630

== ENCOUNTER → 2024-04-16 12:08 | Outpatient (CLI) | payer MEDICARE, SELFPAY ==
[2024-04-16 13:00] LABS: Influenza A - CEPHEID Flu A NEGATIVE (NEGATIVE); Influenza B - CEPHEID Flu B NEGATIVE (NEGATIVE); Respiratory Syncytial Virus Negative (Negative)
[2024-04-16 14:20] LABS: COVID-19 CEPHEID 4-PLEX PCR Negative (Negative)
== END ==
PROVIDERS: PCP Nurse Practitioner; Referring Provider Nurse Practitioner Family; Visit Provider Nurse Practitioner Family
DX: R05.1 Acute cough (principal)
CPT/HCPCS: 0241U

== ENCOUNTER 2024-06-10 13:11 | Emergency (ER) | payer MEDICARE, SELFPAY ==
[2024-06-10] VITALS (10 sets, daily range): BP systolic 123–153; BP diastolic 60–80; PULSE 48–68; RESP 15–40; TEMP 36.8; O2SAT 94–99; BMI 25.9
--- NOTE | 2024-06-10 14:12 | DI.RAD.S_ITS ---
PROCEDURE: XR CHEST 1V INDICATIONS: chest pain TECHNIQUE: One view of the chest was acquired. COMPARISON: [facility], CR, XR CHEST 2V, 03/27/2022, 17:20. FINDINGS: Surgical changes and devices: None. Lungs and pleura: Lungs are clear. No pleural effusions or pneumothorax. Mediastinum: Mediastinal contours appear normal. Heart size is normal. Bones and chest wall: No suspicious bony lesions. Overlying soft tissues appear unremarkable. IMPRESSION: No acute cardiopulmonary abnormality is seen. Dictated by: Sotero Ward M.D. on 06/10/2024 at 14:48 Approved by: Sotero Ward M.D. on 06/10/2024 at 14:48
--- NOTE | 2024-06-10 14:30 | PC.NURSE ---
this RN went to the lobby to grab the patient and start an IV with labs and patient declined. patient was sent from the walk in clinic because it was apparently reported by the patient to the nurse at the walk in clinic that she had some intermittent chest pain and shortness of breath. patient declined to me in triage that she did not have any chest pain or shortness of breath. patient states and when pulling back for IV no i do not have chest pain and states please no I want to wait to see the doctor. 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
--- NOTE | 2024-06-10 16:20 | EKG_ITS ---
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
[2024-06-10 16:51] LABS: Add Manual Diff / Slide Review NO; Basophils Absolute Auto 0 /uL (0-100); Basophils Percent Auto 0.7 % (0-2); Eosinophils Absolute Auto 100 /uL (0-450); Eosinophils Percent Auto 2.6 % (2-4); Hematocrit 38.9 % (36-46); Hemoglobin 12.8 g/dL (12.0-16.0); Lymphocytes Absolute Auto 2300 /uL (1100-4500); Lymphocytes Percent Auto 40.4 % (25-40); Mean Corpuscular HGB Conc 32.9 % (30-36); Monocytes Absolute Auto 400 /uL (0-900); Neutrophils Absolute Auto 2700 /uL (1500-7000); Neutrophils Percent Auto 48.3 % (50-75); Platelet Count 173 X10^3/uL (150-400); Red Blood Cell Count 4.14 X10^6/uL (4.0-5.2); White Blood Cell Count 5.6 X10^3/uL (4.5-11.0)
[2024-06-10 16:56] LABS: INR 0.9 (0.9-1.3); Prothrombin Time 10.5 SECONDS (9.4-12.5)
[2024-06-10 16:58] LABS: PTT Partial Thromboplastin Tim 28 SECONDS (25.1-36.5)
[2024-06-10 17:08] LABS: Alanine Aminotransferase 13 IU/L (<35); Albumin 4.1 g/dL (3.5-5.0); Albumin Globulin Ratio 1.6 (1.0-2.8); Alkaline Phosphatase 54 U/L (38-126); Aspartate Aminotransferase 22 IU/L (14-36); BUN Creatinine Ratio 24.4 (6-22); Bilirubin Total 0.5 mg/dL (0.2-1.3); Blood Urea Nitrogen 21 mg/dL (7-17); Calcium 9.1 mg/dL (8.4-10.2); Carbon Dioxide 24 mmol/L (22-32); Chloride 107 mmol/L (98-107); Creatine Kinase 75 U/L (30-135); Estimated Glomerular Filt Rate > 60 mL/min (>60); Globulin 2.6 g/dL (1.7-4.1); Glucose 95 mg/dL (80-110); HEMOLYSIS < 15 (0-50); Lipase 120 U/L (23-300); Magnesium 2.1 mg/dL (1.6-2.3); Potassium 4.2 mmol/L (3.4-5.1); Sodium 137 mmol/L (137-145); Total Protein 6.7 g/dL (6.3-8.2)
[2024-06-10 17:20] LABS: NT-proBNP (BNP-Adult 18+) 185 pg/mL (<450); Troponin I < 0.012 ng/mL (0.01-0.034)
--- NOTE | 2024-06-10 18:40 | ED_ITS ---
HPI - Dizziness General Chief Complaint: Dizziness Stated Complaint: light headed, sent by [facility] Time Seen by Provider: 06/10/24 17:51 Source: patient Mode of arrival: Ambulatory History of Present Illness HPI Narrative: 83-year-old female with history of osteoporosis, GERD presents for approximately 1 week of lightheaded sensation. Patient states that for the last month every time she puts her specialized hearing aid in her left ear she gets drainage from the ear. She has a known cholesteatoma on that side and is followed by ear nose and throat. She last saw them 1 month ago right around the time that the symptoms initially started, but was told that it would get better on its own. For the last week patient has intermittently felt lightheaded, but today she had an episode that was more intense than usual. She initially went to the walk-in clinic, but was referred to the emergency department for workup. While lying in the emergency bed the patient was denying any symptoms. Related Data Home Medications Medication Instructions Recorded Confirmed Lanzoprazole 30 mg PO .QD 11/07/23 04/08/24 b12 concentrate See Rx Instructions .Route .COMPLEX 11/07/23 04/08/24 magnesium See Rx Instructions .Route .COMPLEX 11/07/23 04/08/24 calcium carbonate (Calcium 600) 600 mg PO DAILY 01/09/24 04/08/24 cholecalciferol (vitamin D3) 125 125 mcg PO DAILY 01/09/24 04/08/24 mcg (5,000 unit) capsule fluocinonide 0.05 % topical topical 04/16/24 04/16/24 solution ketoconazole 2 % shampoo topical 04/16/24 04/16/24 ofloxacin 0.3 % ear drops drp otic (ear) 04/16/24 04/16/24 Previous Rx's Medication Instructions Recorded benzonatate 200 mg capsule 200 mg PO BID PRN cough #28 caps 04/16/24 fluticasone propionate 50 1 spray intranasal Q12H #48 grams 04/16/24 mcg/actuation nasal spray,suspension lansoprazole 30 mg capsule,delayed 30 mg PO DAILY #90 caps 05/29/24 release amoxicillin 875 mg tablet 875 mg PO Q12H #14 tabs 06/10/24 Allergies Allergy/AdvReac Type Severity Reaction Status Date / Time No Known Allergies Allergy Uncoded 06/10/24 13:39 Patient History Medical History Osteopenia after menopause Hearing loss (~1985) GERD (gastroesophageal reflux disease) Surgical History Anesthesia History of appendectomy (~1949) Cholesteatoma (~1985) Family History Father History of heart disease Mother Cancer Brother History of kidney disease Social History Smoking Status: Former smoker Smoking Status: Former smoker alcohol intake frequency: 0-2 drinks per day Substance Use Type: does not use Exam Initial Vital Signs Initial Vital Signs: Vital Signs Temperature 98.2 F 06/10/24 13:34 Pulse Rate 68 06/10/24 13:34 Respiratory Rate 16 06/10/24 13:34 Blood Pressure 153/80 H 06/10/24 13:34 Pulse Oximetry 99 06/10/24 13:34 Oxygen Delivery Method Room Air 06/10/24 13:34 Const: Awake, alert, no acute distress, nontoxic appearing HEENT: PERRLA, EOMI, right TM normal, left TM erythematous, intact, slightly bulging Cardiac: regular rate, regular rhythm RESP: unlabored, clear bilaterally, no wheezing GI: Soft, nontender, nondistended, no rebound, no guarding Skin: Warm, Dry, intact, no rashes Neuro: AO x3, CN II-XII grossly intact, moves all extremities Course Orders Ordered: Discontinued Medications Amoxicillin (Amoxicillin 250 Mg Capsule) 1,000 mg PO NOW ONE Stop: 06/10/24 19:11 Last Admin: 06/10/24 19:15 Dose: 1,000 mg Documented By: EVANGELIST Aspirin (Aspirin 81 Mg Chew Tab) 324 mg PO NOW ONE Stop: 06/10/24 14:13 Last Admin: 06/10/24 18:58 Dose: Not Given Documented By: EVANGELIST Vital Signs Vital signs: Vital Signs - 8 hr 06/10/24 13:34 06/10/24 16:14 06/10/24 16:14 Temperature 98.2 F Pulse Rate 68 56 L Respiratory Rate 16 Blood Pressure 153/80 H 136/64 Pulse Oximetry 99 95 Oxygen Delivery Method Room Air 06/10/24 16:30 06/10/24 16:31 06/10/24 16:31 Temperature Pulse Rate 53 L 54 L Respiratory Rate 15 18 Blood Pressure 134/66 Pulse Oximetry 96 95 Oxygen Delivery Method 06/10/24 17:00 06/10/24 17:07 06/10/24 17:07 Temperature Pulse Rate 53 L 59 L Respiratory Rate 21 40 H Blood Pressure 130/61 Pulse Oximetry 94 95 Oxygen Delivery Method 06/10/24 17:30 06/10/24 17:30 06/10/24 18:00 Temperature Pulse Rate 55 L 50 L Respiratory Rate 19 20 Blood Pressure 123/60 Pulse Oximetry 96 94 Oxygen Delivery Method 06/10/24 18:00 06/10/24 18:30 06/10/24 18:30 Temperature Pulse Rate 48 L Respiratory Rate 19 Blood Pressure 136/60 127/62 Pulse Oximetry 97 Oxygen Delivery Method 06/10/24 19:00 06/10/24 19:00 Temperature Pulse Rate 51 L Respiratory Rate 21 Blood Pressure 133/60 Pulse Oximetry 96 Oxygen Delivery Method MDM - Dizziness Lab Data 06/10/24 16:42 06/10/24 16:42 Labs: Lab Results 06/10/24 Range/Units 16:42 WBC 5.6 (4.5-11.0) X10^3/uL RBC 4.14 (4.0-5.2) X10^6/uL Hgb 12.8 (12.0-16.0) g/dL Hct 38.9 (36-46) % MCV 94.0 (80-100) fL MCH 31.0 (26-34) PG MCHC 32.9 (30-36) % RDW 13.0 (11.6-14.8) % Plt Count 173 (150-400) X10^3/uL Neut % (Auto) 48.3 L (50-75) % Lymph % (Auto) 40.4 H (25-40) % [place] % (Auto) 8.0 (3-14) % Eos % (Auto) 2.6 (2-4) % Baso % (Auto) 0.7 (0-2) % Neut # (Auto) 2700 (6879-1228) /uL Lymph # (Auto) 2300 (3317-0308) /uL [place] # (Auto) 400 (0-900) /uL Eos # (Auto) 100 (0-450) /uL Baso # (Auto) 0 (0-100) /uL PT 10.5 (9.4-12.5) SECONDS INR 0.9 (0.9-1.3) APTT 28 (25.1-36.5) SECONDS Sodium 137 (137-145) mmol/L Potassium 4.2 (3.4-5.1) mmol/L Chloride 107 (98-107) mmol/L Carbon Dioxide 24 (22-32) mmol/L BUN 21 H (7-17) mg/dL Creatinine 0.86 (0.52-1.04) mg/dL Estimated GFR > 60 (>60) mL/min BUN/Creatinine Ratio 24.4 H (6-22) Glucose 95 (80-110) mg/dL Calcium 9.1 (8.4-10.2) mg/dL Magnesium 2.1 (1.6-2.3) mg/dL Total Bilirubin 0.5 (0.2-1.3) mg/dL AST 22 (14-36) IU/L ALT 13 (<35) IU/L Alkaline Phosphatase 54 (38-126) U/L Total Creatine Kinase 75 (30-135) U/L Troponin I < 0.012 (0.01-0.034) ng/mL NT-Pro-B Natriuret Pep 185 (<450) pg/mL Total Protein 6.7 (6.3-8.2) g/dL Albumin 4.1 (3.5-5.0) g/dL Globulin 2.6 (1.7-4.1) g/dL Albumin/Globulin Ratio 1.6 (1.0-2.8) Lipase 120 (23-300) U/L Imaging Data Chest x-ray: Radiologist's Impression: PROCEDURE: XR CHEST 1V INDICATIONS: chest pain TECHNIQUE: One view of the chest was acquired. COMPARISON: [facility], , XR CHEST 2V, 03/27/2022, 17:20. FINDINGS: Surgical changes and devices: None. Lungs and pleura: Lungs are clear. No pleural effusions or pneumothorax. Mediastinum: Mediastinal contours appear normal. Heart size is normal. Bones and chest wall: No suspicious bony lesions. Overlying soft tissues appear unremarkable. IMPRESSION: No acute cardiopulmonary abnormality is seen. Dictated by: Sotero Ward M.D. on 06/10/2024 at 14:48 Approved by: Sotero Ward M.D. on 06/10/2024 at 14:48 ECG Data Interpretation: Sinus bradycardia at 51 beats per minute. Normal CO. No ST T wave changes MDM Narrative Medical decision making narrative: Well-appearing patient with 1 month of left ear drainage and 1 week of intermittent dizziness. No focal neurologic deficit, patient denies vertigo or other concerning symptoms for more sinister process. She does have significant erythema and swelling behind her left ear drum, although she does deny pain. Mastoids nontender, no auricular tenderness with manipulation. Laboratory work unremarkable, EKG sinus bradycardia without concerning a arrhythmias, chest x- ray clear. I do suspect that at least some component of patient's symptoms are related to her left ear symptoms. Since patient has been complaining of persistent drainage for the last month with hearing aid placement she was recommended to stop inserting her hearing aid until otherwise instructed to by an ear nose and throat doctor. A course of oral antibiotics will be started to see if this helps patient's symptoms. She was also counseled on the importance of following up with both her primary care doctor and her ear nose and throat doctor. Discharge Plan Departure Patient Disposition: Home Clinical Impression: Dizziness, Drainage from ear, left Instructions: DI for Dizziness-Nonvertigo Activity Restrictions/Additional Instructions: Your laboratory work here today appears normal. I did notice some irritation and inflammation behind your ear drum. Combined with the drainage you were experiencing from your ear I recommend the followin. Do not insert your hearing aid in the left ear until otherwise instructed by an ear nose and throat doctor 2. Finish all of your antibiotics as prescribed. 3. Follow up with your clinical data research to make sure that your ear drum heals and you have no more drainage. Prescriptions: New amoxicillin 875 mg tablet 875 mg PO Q12H Qty: 14 0RF No Action ketoconazole 2 % shampoo topical ofloxacin 0.3 % drops otic (ear) Patient Comments: [NO ORIGINAL SIG] fluocinonide 0.05 % solution topical benzonatate 200 mg capsule 200 mg PO BID PRN (Reason: cough) Qty: 28 0RF fluticasone propionate 50 mcg/actuation spray,suspension 1 spray intranasal Q12H Qty: 48 0RF lansoprazole 30 mg capsule,delayed release(DR/EC) 30 mg PO DAILY Qty: 90 1RF Lanzoprazole 30 mg PO .QD b12 concentrate See Rx Instructions .ROUTE .COMPLEX Rx Instructions: Take daily; magnesium See Rx Instructions .ROUTE .COMPLEX Rx Instructions: Take 1 tab daily; cholecalciferol (vitamin D3) 125 mcg (5,000 unit) capsule 125 mcg PO DAILY calcium carbonate [Calcium 600] 600 mg calcium (1,500 mg) tablet 600 mg PO DAILY Referrals: Dina York ARNP [Primary Care Provider] - Stand Alone Forms: Patient Portal/API/Survey
[2024-06-10] MEDS: AMOXICILLIN 250 MG CAPSULE 1000 MG PO (19:15)
== END 2024-06-10 19:32 | disposition home or self-care (01) ==
PROVIDERS: Emergency Medicine; Emergency Provider Emergency Medicine; PCP Nurse Practitioner
DX: R42 Dizziness and giddiness (principal); H92.12 Otorrhea, left ear; R07.9 Chest pain, unspecified; R00.1 Bradycardia, unspecified
CPT/HCPCS: 36415; 71045; 80053; 82550; 83690; 83735; 83880; 84484; 85025; 85610; 85730; 93005; 93010; 99284

== ENCOUNTER 2024-09-01 07:04 | Emergency (ER) | payer MEDICARE, SELFPAY ==
--- NOTE | 2024-09-01 07:13 | ED_ITS ---
HPI - Abdominal Pain General Chief Complaint: Abdominal Pain Stated Complaint: abd pain Time Seen by Provider: 09/01/24 07:08 Source: patient, RN notes reviewed and old records reviewed Mode of arrival: Ambulatory Limitations: no limitations History of Present Illness HPI narrative: 84-year-old female on lansoprazole as her only daily medication presents with complaint of left-sided abdominal pain for the past month. Patient states it is most notable 1st thing in the morning typically improves throughout the day. She states some days that is quite intense today was little bit less so but has not resolved or gone away. She denies fevers or chills. No chest pain or shortness of breath. No nausea or vomiting. She has not associated changes to her bowel movements. States has not had a bowel movement a couple days but has not had felt the need to. Denies any black or bloody stools. Patient denies any dysuria, urgency or frequency. No vaginal bleeding. She takes lansoprazole daily for reflux denies any other medical issues. States she had an appendectomy at age 10. Former smoker, does drink a glass of alcohol daily, no recreational drugs. Recently established with Dr. Haas is her primary care physician. Related Data Home Medications Medication Instructions Recorded Confirmed Lanzoprazole 30 mg PO .QD 11/07/23 04/08/24 b12 concentrate See Rx Instructions .Route .COMPLEX 11/07/23 04/08/24 magnesium See Rx Instructions .Route .COMPLEX 11/07/23 04/08/24 calcium carbonate (Calcium 600) 600 mg PO DAILY 01/09/24 04/08/24 cholecalciferol (vitamin D3) 125 125 mcg PO DAILY 01/09/24 04/08/24 mcg (5,000 unit) capsule fluocinonide 0.05 % topical topical 04/16/24 04/16/24 solution ketoconazole 2 % shampoo topical 04/16/24 04/16/24 ofloxacin 0.3 % ear drops drp otic (ear) 04/16/24 04/16/24 Previous Rx's Medication Instructions Recorded benzonatate 200 mg capsule 200 mg PO BID PRN cough #28 caps 04/16/24 fluticasone propionate 50 1 spray intranasal Q12H #48 grams 04/16/24 mcg/actuation nasal spray,suspension lansoprazole 30 mg capsule,delayed 30 mg PO DAILY #90 caps 05/29/24 release amoxicillin 875 mg tablet 875 mg PO Q12H #14 tabs 06/10/24 Allergies Allergy/AdvReac Type Severity Reaction Status Date / Time No Known Allergies Allergy Uncoded 06/10/24 13:39 Review of Systems Review of Systems ROS Unobtainable: All systems reviewed & are unremarkable except as noted in HPI and below Patient History Medical History Osteopenia after menopause Hearing loss (~1985) GERD (gastroesophageal reflux disease) Surgical History Anesthesia History of appendectomy (~1949) Cholesteatoma (~1985) Family History Father History of heart disease Mother Cancer Brother History of kidney disease Social History Smoking Status: Former smoker Smoking Status: Former smoker alcohol intake frequency: 0-2 drinks per day Exam Narrative Exam Narrative: GENERAL: Alert and oriented x three, female in mild distress HEENT: Head normocephalic, atraumatic, EOMI, pupils reactive, face symmetric, moist mucous membranes NECK: Supple, full range of motion CARDIOVASCULAR: Regular rate and rhythm without murmurs, rubs or gallops. RESPIRATORY: Breath sounds equal bilaterally, no wheezes rales or rhonchi. ABDOMEN: Soft, nontender. Normoactive bowel sounds all 4 quadrants. No guarding or rebound, rigidity, no mass : No CVA tenderness EXTREMITIES: Normal range of motion, no clubbing or edema. Neurovascularly intact NEUROLOGICAL: Cranial nerves II through XII grossly intact. Moving all extremities SKIN: Warm, dry, no petechiae, no rashes or lesions. Initial Vital Signs Initial Vital Signs: Vital Signs Temperature 97.9 F 09/01/24 07:15 Pulse Rate 74 09/01/24 07:15 Respiratory Rate 18 09/01/24 07:15 Blood Pressure 148/67 H 09/01/24 07:15 Pulse Oximetry 97 09/01/24 07:15 Oxygen Delivery Method Room Air 09/01/24 07:15 Course Orders Ordered: ED Orders 09/01/24 07:20 CT abdomen pelvis w con Stat Complete Blood Count AUTO DIFF Stat Comprehensive Metabolic Panel Stat Lipase Stat Vital Signs Vital signs: Vital Signs - 8 hr 09/01/24 07:15 09/01/24 07:16 Temperature 97.9 F Pulse Rate 74 76 Respiratory Rate 18 Blood Pressure 148/67 H Pulse Oximetry 97 97 Oxygen Delivery Method Room Air MDM - Abdominal Pain Lab Data 09/01/24 07:18 09/01/24 07:18 Labs: Lab Results 09/01/24 09/01/24 Range/Units 07:18 08:39 WBC 5.0 (4.5-11.0) X10^3/uL RBC 4.26 (4.0-5.2) X10^6/uL Hgb 13.3 (12.0-16.0) g/dL Hct 40.0 (36-46) % MCV 93.9 (80-100) fL MCH 31.2 (26-34) PG MCHC 33.2 (30-36) % RDW 13.4 (11.6-14.8) % Plt Count 166 (150-400) X10^3/uL Neut % (Auto) 43.4 L (50-75) % Lymph % (Auto) 40.9 H (25-40) % [place] % (Auto) 10.8 (3-14) % Eos % (Auto) 3.6 (2-4) % Baso % (Auto) 1.3 (0-2) % Neut # (Auto) 2200 (1836-4535) /uL Lymph # (Auto) 2000 (0945-4983) /uL [place] # (Auto) 500 (0-900) /uL Eos # (Auto) 200 (0-450) /uL Baso # (Auto) 100 (0-100) /uL Sodium 138 (137-145) mmol/L Potassium 4.4 (3.4-5.1) mmol/L Chloride 108 H (98-107) mmol/L Carbon Dioxide 25 (22-32) mmol/L BUN 15 (7-17) mg/dL Creatinine 0.95 (0.52-1.04) mg/dL Estimated GFR 60 (>60) mL/min BUN/Creatinine Ratio 15.8 (6-22) Glucose 95 (80-110) mg/dL Calcium 9.1 (8.4-10.2) mg/dL Total Bilirubin 0.5 (0.2-1.3) mg/dL AST 23 (14-36) IU/L ALT 16 (<35) IU/L Alkaline Phosphatase 51 (38-126) U/L Total Protein 6.9 (6.3-8.2) g/dL Albumin 4.2 (3.5-5.0) g/dL Globulin 2.7 (1.7-4.1) g/dL Albumin/Globulin Ratio 1.6 (1.0-2.8) Lipase 98 (23-300) U/L Urine RBC None seen (0-5/HPF) Urine WBC 1-5/hpf (0-5/HPF) Ur Squamous Epith Cells None seen (0-5/HPF) Urine Bacteria None seen (None) Ur Culture Indicated? Specimen cultured Vol Urine Centrifuged 10ml (spun) Point of care testing: Urine Dip Bedside Urine Glucose Negative Bedside Urine Bilirubin - Negative Bedside Urine Ketone - Negative Urine Specific [place] 1.010 Bedside Urine Occult Blood - Negative Bedside Urine pH 8.5 Bedside Urine Protein - Negative Bedside Urine Urobilinogen - Negative Bedside Urine Nitrite - Negative Bedside Urine Leukocytes +/- 15 Esterase ECG Data Attestation: I personally reviewed and interpreted this ECG as follows: Prior ECG tracings: available for review Interpretation: Sinus rhythm rate of 66 CT 160 QRS of 90 QTC of 417, no acute ST changes appreciated, patient has prior from 06/10/2024 which shows sinus bradycardia otherwise similar appearing ST segments. [facility] Narrative Medical decision making narrative: 84-year-old female with a month of left lower quadrant abdominal pain denies any other significant symptoms no bloody stools she was nontender on exam but did notes her pain is not as intense today is typical. Based on age persistent symptoms labs and CT imaging were felt appropriate as well as urine. Labs show white count of 5 hemoglobin of 13.3 platelets of 166. Chemistries show chloride of 108 sodium is 138 potassium 4.4 CO2 is 25 BUN 15 creatinine 0.95 glucose is 95 with a calcium of 9.5 LFTs are negative lipase is 98. Urine CT imaging shows some nonspecific mild wall thickening of the gastroesophageal junction also partially seen coronary calcifications mild bilateral pelviectasis/extrarenal pelvis similar to prior 3rd degenerative changes. No small-bowel obstruction no high-grade inflammatory changes elsewhere. EKG shows sinus rhythm rate of 66. Discharge Plan Departure Patient Disposition: Home Clinical Impression: Left sided abdominal pain Instructions: DI for Abdominal Pain-Adult Activity Restrictions/Additional Instructions: Follow up with your physician, I would recommend follow up for colonoscopy for further evaluation of your left sided abdominal pain. Contact is included below to set up followup. Your CT imaging did show little bit of thickening of the gastroesophageal junction this is likely related to your reflux were GERD. Share this information with your physician they may have you follow up for upper endoscopy in the future. Please return for fevers, worsening abdominal back flank pain, vomiting, black or bloody stools, any difficulty with urination or new vaginal bleeding or other new or concerning changes. Prescriptions: No Action ketoconazole 2 % shampoo topical ofloxacin 0.3 % drops otic (ear) Patient Comments: [NO ORIGINAL SIG] fluocinonide 0.05 % solution topical benzonatate 200 mg capsule 200 mg PO BID PRN (Reason: cough) Qty: 28 0RF fluticasone propionate 50 mcg/actuation spray,suspension 1 spray intranasal Q12H Qty: 48 0RF lansoprazole 30 mg capsule,delayed release(DR/EC) 30 mg PO DAILY Qty: 90 1RF Lanzoprazole 30 mg PO .QD b12 concentrate See Rx Instructions .ROUTE .COMPLEX Rx Instructions: Take daily; magnesium See Rx Instructions .ROUTE .COMPLEX Rx Instructions: Take 1 tab daily; cholecalciferol (vitamin D3) 125 mcg (5,000 unit) capsule 125 mcg PO DAILY calcium carbonate [Calcium 600] 600 mg calcium (1,500 mg) tablet 600 mg PO DAILY amoxicillin 875 mg tablet 875 mg PO Q12H Qty: 14 0RF Referrals: Dina York ARNP [Primary Care Provider] - Thee Lopez MD [Physician] - Stand Alone Forms: Patient Portal/API/Survey
[2024-09-01 07:15] VITALS: BP 148/67; PULSE 74; RESP 18; TEMP 36.6; O2SAT 97
[2024-09-01 07:16] VITALS: PULSE 76; O2SAT 97
--- NOTE | 2024-09-01 07:20 | DI.CT.S_ITS ---
PROCEDURE: CT ABDOMEN PELVIS W CON INDICATIONS: LLQ pain x 1 month, not improving TECHNIQUE: After the administration of intravenous contrast, axial sections acquired from the lung bases to the pubic symphysis. Coronal and sagittal reformats were performed. For radiation dose reduction, the following was used: automated exposure control, adjustment of mA and/or kV according to patient size. COMPARISON: [facility], CT, CT ABDOMEN PELVIS W CON, 12/31/2023, 9:49. FINDINGS: Image quality: Diagnostic Lower chest: Basal atelectasis/scarring. Nonspecific mild wall thickening at the gastroesophageal junction. There are also partially seen coronary calcifications. Breast postsurgical changes on the left. Liver: Unremarkable Gallbladder and biliary system: No gross dilation Pancreas: No ductal dilation Spleen: Nonenlarged Adrenals: Similar thickening on the left Kidneys: No solid mass or hydronephrosis. Mild bilateral pelviectasis/extrarenal pelvis similar to prior Vessels and lymph nodes: The main portal vein is patent. No abdominal aortic aneurysm. No pathologic lymphadenopathy by size criteria. Bowel and peritoneum: Gastric wall thickening is suspected, although not well assessed due to under distension. There is no acute small bowel obstruction. No pathologic ascites. Body wall: Unremarkable Pelvis: Bladder is unremarkable. Reproductive organs are unremarkable on limited CT evaluation Bones: There are degenerative changes. IMPRESSION: Possible wall thickening at the gastroesophageal junction and stomach, not well assessed due to under distension, possibly gastroesophagitis. No small bowel obstruction. No high-grade inflammatory changes elsewhere. Other findings above Dictated by: Markus Gutierrez M.D. on 09/01/2024 at 8:05 Approved by: Markus Gutierrez M.D. on 09/01/2024 at 8:09
--- NOTE | 2024-09-01 07:20 | EKG_ITS ---
[address] [address] Test Date: 2024-09-01 Pat Name: Asia Rivera Department: Room: Gender: Female Hospital Clinic Assistant: LISA : 1940 Requested By: Order Number: [id number] Reading MD: Keaton Lynch Measurements Intervals [place] Rate: 66 P: 66 CO: 160 QRS: -8 QRSD: 90 T: 47 QT: 398 QTc: 417 Interpretive Statements Normal sinus rhythm Low voltage QRS Septal infarct , age undetermined Electronically Signed On 09-03-2024 23:44:00 PST by Keaton Lynch
[2024-09-01 07:27] LABS: Add Manual Diff / Slide Review NO; Basophils Absolute Auto 100 /uL (0-100); Basophils Percent Auto 1.3 % (0-2); Eosinophils Absolute Auto 200 /uL (0-450); Eosinophils Percent Auto 3.6 % (2-4); Hemoglobin 13.3 g/dL (12.0-16.0); Lymphocytes Absolute Auto 2000 /uL (1100-4500); Lymphocytes Percent Auto 40.9 % (25-40); Mean Corpuscular HGB Conc 33.2 % (30-36); Mean Corpuscular Hemoglobin 31.2 PG (26-34); Mean Corpuscular Volume 93.9 fL (80-100); Monocytes Absolute Auto 500 /uL (0-900); Monocytes Percent Auto 10.8 % (3-14); Neutrophils Absolute Auto 2200 /uL (1500-7000); Neutrophils Percent Auto 43.4 % (50-75); Platelet Count 166 X10^3/uL (150-400); Red Blood Cell Count 4.26 X10^6/uL (4.0-5.2); Red Cell Distribution Width 13.4 % (11.6-14.8)
[2024-09-01 07:37] LABS: Alanine Aminotransferase 16 IU/L (<35); Albumin 4.2 g/dL (3.5-5.0); Albumin Globulin Ratio 1.6 (1.0-2.8); Alkaline Phosphatase 51 U/L (38-126); Aspartate Aminotransferase 23 IU/L (14-36); BUN Creatinine Ratio 15.8 (6-22); Bilirubin Total 0.5 mg/dL (0.2-1.3); Blood Urea Nitrogen 15 mg/dL (7-17); Calcium 9.1 mg/dL (8.4-10.2); Carbon Dioxide 25 mmol/L (22-32); Chloride 108 mmol/L (98-107); Estimated Glomerular Filt Rate 60 mL/min (>60); Globulin 2.7 g/dL (1.7-4.1); Glucose 95 mg/dL (80-110); HEMOLYSIS < 15 (0-50); Lipase 98 U/L (23-300); Potassium 4.4 mmol/L (3.4-5.1); Sodium 138 mmol/L (137-145); Total Protein 6.9 g/dL (6.3-8.2)
[2024-09-01 08:54] LABS: Urine Volume 10mL (spun)
[2024-09-01 08:56] LABS: Bacteria Urine None Seen; Culture Indicated Urine Specimen Cultured; RBC Urine None Seen (0-5/HPF); Squamous Epithelial Cell Urine None Seen (0-5/HPF); WBC Urine 1-5/HPF (0-5/HPF)
[2024-09-01 09:25] VITALS: BP 144/78; PULSE 66; RESP 16; TEMP 36.9; O2SAT 98
== END 2024-09-01 09:15 | disposition home or self-care (01) ==
PROVIDERS: Emergency Provider Emergency Medicine; PCP Nurse Practitioner
DX: R10.9 Unspecified abdominal pain (principal); Z87.891 Personal history of nicotine dependence; F10.90 Alcohol use, unspecified, uncomplicated
CPT/HCPCS: 74177; 80053; 81003; 81015; 83690; 85025; 87077; 87086; 87186; 93005; 99283; 99285; Q9967

== ENCOUNTER 2024-09-04 07:43 | Emergency (ER) | payer MEDICARE, SELFPAY ==
--- NOTE | 2024-09-04 07:49 | ED_ITS ---
HPI - Abdominal Pain General Chief Complaint: Abdominal Pain Stated Complaint: L abd pain Time Seen by Provider: 09/04/24 07:49 Source: patient, RN notes reviewed and old records reviewed Mode of arrival: Ambulatory Limitations: no limitations History of Present Illness HPI narrative: 84-year-old female on lansoprazole, returns with a complaint of abdominal pain for the past month has been specifically in the left side. More notable 1st thing in the morning she describes as typically improving throughout the day. Patient was seen by myself on 09/01/[address] imaging at that time which showed some gastroesophageal junction thickening unwell bilateral pelviectasis extra renal pelvis but no other clear source of symptoms. Patient states very similar little bit worse today than it was today she was here. No fevers, no chills, no nausea or vomiting. She states normal bowel movements. She took a pill to help with constipation states had some large bowel movements did not have any improvement. Denies dysuria, urgency or frequency initially but does note for the past 6 months she was has a little bit more urgency after some further discussion. Denies any vaginal bleeding or discharge. Patient has not taken anything for pain at home. She states lansoprazole is her only daily medication. Denies any drug allergies. Former smoker, does have alcohol daily, no recreational drugs. Dr. Haas is her primary care physician. Related Data Home Medications Medication Instructions Recorded Confirmed Lanzoprazole 30 mg PO .QD 11/07/23 04/08/24 b12 concentrate See Rx Instructions .Route .COMPLEX 11/07/23 04/08/24 magnesium See Rx Instructions .Route .COMPLEX 11/07/23 04/08/24 calcium carbonate (Calcium 600) 600 mg PO DAILY 01/09/24 04/08/24 cholecalciferol (vitamin D3) 125 125 mcg PO DAILY 01/09/24 04/08/24 mcg (5,000 unit) capsule fluocinonide 0.05 % topical topical 04/16/24 04/16/24 solution ketoconazole 2 % shampoo topical 04/16/24 04/16/24 ofloxacin 0.3 % ear drops drp otic (ear) 04/16/24 04/16/24 Previous Rx's Medication Instructions Recorded benzonatate 200 mg capsule 200 mg PO BID PRN cough #28 caps 04/16/24 fluticasone propionate 50 1 spray intranasal Q12H #48 grams 04/16/24 mcg/actuation nasal spray,suspension lansoprazole 30 mg capsule,delayed 30 mg PO DAILY #90 caps 05/29/24 release amoxicillin 875 mg tablet 875 mg PO Q12H #14 tabs 06/10/24 cephalexin 500 mg capsule 500 mg PO Q8H 7 days #21 caps 09/04/24 Allergies Allergy/AdvReac Type Severity Reaction Status Date / Time No Known Allergies Allergy Uncoded 06/10/24 13:39 Review of Systems Review of Systems ROS Unobtainable: All systems reviewed & are unremarkable except as noted in HPI and below Patient History Medical History Osteopenia after menopause Hearing loss (~1985) GERD (gastroesophageal reflux disease) Surgical History Anesthesia History of appendectomy (~1949) Cholesteatoma (~1985) Family History Father History of heart disease Mother Cancer Brother History of kidney disease Social History Smoking Status: Former smoker Smoking Status: Former smoker alcohol intake frequency: 0-2 drinks per day Alcohol type: wine Exam Narrative Exam Narrative: GENERAL: Alert and oriented x three, well-appearing female in mild distress. HEENT: Head normocephalic, atraumatic, EOMI, pupils reactive, face symmetric, moist mucous membranes NECK: Supple, full range of motion CARDIOVASCULAR: Regular rate and rhythm without murmurs, rubs or gallops. RESPIRATORY: Breath sounds equal bilaterally, no wheezes rales or rhonchi. ABDOMEN: Soft, nontender. Normoactive bowel sounds all 4 quadrants. No guarding or rebound, rigidity, no mass : No CVA tenderness EXTREMITIES: Normal range of motion, no clubbing or edema. Neurovascularly intact NEUROLOGICAL: Cranial nerves II through XII grossly intact. Moving all extremities SKIN: Warm, dry, no petechiae, no rashes or lesions. Initial Vital Signs Initial Vital Signs: Vital Signs Temperature 97.7 F 09/04/24 07:54 Pulse Rate 72 09/04/24 07:54 Respiratory Rate 18 09/04/24 07:54 Blood Pressure 151/73 H 09/04/24 07:54 Pulse Oximetry 96 09/04/24 07:54 Oxygen Delivery Method Room Air 09/04/24 07:54 Course Orders Ordered: ED Orders 09/04/24 08:07 CT abdomen pelvis w con Stat 09/04/24 08:27 CBC Auto Diff [Complete Blood Count AUTO DIFF] Stat CMP [Comprehensive Metabolic Panel] Stat Lipase Stat Discontinued Medications Cephalexin HCl (Cephalexin 250 Mg Capsule) 500 mg PO NOW ONE Stop: 09/04/24 08:08 Last Admin: 09/04/24 08:18 Dose: 500 mg Documented By: EVANGELIST Ketorolac Tromethamine (Ketorolac 30 Mg/Ml Vial) 15 mg IV NOW ONE Stop: 09/04/24 08:08 Last Admin: 09/04/24 08:16 Dose: 15 mg Documented By: EVANGELIST Vital Signs Vital signs: Vital Signs - 8 hr 09/04/24 07:54 Temperature 97.7 F Pulse Rate 72 Respiratory Rate 18 Blood Pressure 151/73 H Pulse Oximetry 96 Oxygen Delivery Method Room Air MDM - Abdominal Pain Lab Data 09/04/24 08:27 09/04/24 08:27 Labs: Lab Results 09/04/24 Range/Units 08:27 WBC 4.2 L (4.5-11.0) X10^3/uL RBC 4.17 (4.0-5.2) X10^6/uL Hgb 13.1 (12.0-16.0) g/dL Hct 39.2 (36-46) % MCV 94.1 (80-100) fL MCH 31.4 (26-34) PG MCHC 33.3 (30-36) % RDW 13.2 (11.6-14.8) % Plt Count 174 (150-400) X10^3/uL Neut % (Auto) 51.4 (50-75) % Lymph % (Auto) 34.9 (25-40) % Lewis % (Auto) 9.4 (3-14) % Eos % (Auto) 3.5 (2-4) % Baso % (Auto) 0.8 (0-2) % Neut # (Auto) 2200 (3263-8943) /uL Lymph # (Auto) 1500 (4119-8729) /uL Lewis # (Auto) 400 (0-900) /uL Eos # (Auto) 100 (0-450) /uL Baso # (Auto) 0 (0-100) /uL Sodium 138 (137-145) mmol/L Potassium 4.2 (3.4-5.1) mmol/L Chloride 108 H (98-107) mmol/L Carbon Dioxide 24 (22-32) mmol/L BUN 13 (7-17) mg/dL Creatinine 0.91 (0.52-1.04) mg/dL Estimated GFR > 60 (>60) mL/min BUN/Creatinine Ratio 14.3 (6-22) Glucose 95 (80-110) mg/dL Calcium 8.9 (8.4-10.2) mg/dL Total Bilirubin 0.4 (0.2-1.3) mg/dL AST 24 (14-36) IU/L ALT 17 (<35) IU/L Alkaline Phosphatase 45 (38-126) U/L Total Protein 6.7 (6.3-8.2) g/dL Albumin 4.0 (3.5-5.0) g/dL Globulin 2.7 (1.7-4.1) g/dL Albumin/Globulin Ratio 1.5 (1.0-2.8) Lipase 107 (23-300) U/L Imaging Data CT scan - abdomen/pelvis: Radiologist's Impression: [place] [address] CT Scan Report Signed Patient: Asia Noriega MR#: [id number] : 1940 Acct:[id number] Age/Sex: 84 / F Date of Service: 09/04/24 Loc: ED Accession Number: [id number] Procedure: CT abdomen pelvis w con Ordering Provider: Sandra Zamudio D.O. PROCEDURE: CT ABDOMEN PELVIS W CON INDICATIONS: LLQ pain, return, nontender TECHNIQUE: After the administration of intravenous contrast, axial sections acquired from the lung bases to the pubic symphysis. Coronal and sagittal reformats were performed. For radiation dose reduction, the following was used: automated exposure control, adjustment of mA and/or kV according to patient size. COMPARISON: [facility], CT, CT ABDOMEN PELVIS W CON, 12/31/2023, 9:49. [facility], CT, CT ABDOMEN PELVIS W CON, 09/01/2024, 7:36. FINDINGS: Image quality: Diagnostic. Lower Chest: No significant findings. ABDOMEN: Liver: No solid mass. Coarse calcification in segment 7. Gallbladder: No radiopaque gallstones or wall thickening. Biliary ducts: No biliary dilation. Pancreas: No ductal dilation. Spleen: Size is within normal limits. Adrenal Glands: Similar nodular thickening of the adrenal gland on the left . Kidneys and Ureters: No hydronephrosis. No solid mass. No complex renal cystic lesion which requires follow up. Stomach and Bowel: Normal colonic caliber, without significant wall thickening. Fecal debris within the small bowel. Appendectomy. Peritoneum: No abnormal intraperitoneal fluid. No free air. Ventral Wall: No significant ventral hernia. Abdominal Nodes: No retroperitoneal or mesenteric adenopathy by size criteria. Vessels: Aorta and inferior vena cava are normal in size. PELVIS: Pelvic Organs: Unremarkable. Bladder: No bladder wall thickening, accounting for underdistention. Pelvic Nodes: No enlarged lymph nodes. Miscellaneous: No inguinal hernias are seen. Bones: No aggressive osseous abnormality. Degenerative disc disease of the lumbar spine. Grade 1 anterolisthesis of L4 on L5 due to facet arthrosis. IMPRESSION: No acute abnormality. Fecal debris within the small-bowel, usually indicating small intestinal bacterial overgrowth versus slow transit. Dictated by: Kalen Gandara M.D. on 09/04/2024 at 8:56 Approved by: Kalen Gandara M.D. on 09/04/2024 at 9:01 MDM Narrative Medical decision making narrative: 84-year-old female seen by myself approximately 3 days ago for similar symptoms left lower quadrant pain for a month or longer increased particularly in the morning improves throughout the day. It is worse today than it was when she was here the other day. No fevers chills no nausea or vomiting no other GI or urinary symptoms accept has noticed a little bit more urgency over the past several months. Patient's labs and CT scan did not show clear source other than some thickening of the gastroesophageal junction and some leukocyte esterase. Patient has a urine culture from 09/03 2024 which is positive for E coli greater than 100,000 pansensitive. Does not appear patient was started on antibiotic. Discussed with patient we will repeat labs based on her age and after discussion we will go ahead and repeat imaging but suspect she may have cystitis causing her symptoms. Patient was given Toradol as well as an oral antibiotic. Patient had improvement of her discomfort. Labs white count of 4.2 slightly low, hemoglobin of 13.1 platelets of 174. Chemistry shows chloride of 108 otherwise normal electrolytes, BUN 13 creatinine 0.91 bilirubin, AST ALT alk-phos and lipase are all normal. Imaging CT abdomen pelvis shows no acute abnormality fecal debris within small- bowel usually indicate any small intestinal bacterial overgrowth versus slow transit. We will treat for UTI as this maybe the source of her pain see if this improves patient has been referred to follow up for colonoscopy for left lower quadrant abdominal pain for greater than a month. Discussed with the patient was pain totally resolved can discussed with the physician if she was still wishes to pursue this if pain is still present she does not need to follow-up with primary care. Discharge Plan Departure Patient Disposition: Home Clinical Impression: Acute UTI Instructions: DI for Urinary Tract Infection (UTI) Activity Restrictions/Additional Instructions: Follow up with your physician, your urine culture from your last visit is positive for a bacteria called E. coli it was pansensitive. Please take antibiotics until completed. Prescription sent to [facility] in [place]. You can take acetaminophen up to a 1000 mg every 6 hours and/or ibuprofen up to 600 mg every 6 hours as needed for pain. This maybe the source of your pain so if your symptoms fully resolve with treatment you may not still require colonoscopy but I would discuss this with your physician. If you do not have any improvement of your symptoms you do need to follow up for colonoscopy. Please return for fevers, new or worsening abdominal back or flank pain, any vomiting, black or bloody stools, inability to difficulty to urinate or other new or concerning changes. Prescriptions: New cephalexin 500 mg capsule 500 mg PO Q8H 7 Days Qty: 21 0RF No Action ketoconazole 2 % shampoo topical ofloxacin 0.3 % drops otic (ear) Patient Comments: [NO ORIGINAL SIG] fluocinonide 0.05 % solution topical benzonatate 200 mg capsule 200 mg PO BID PRN (Reason: cough) Qty: 28 0RF fluticasone propionate 50 mcg/actuation spray,suspension 1 spray intranasal Q12H Qty: 48 0RF lansoprazole 30 mg capsule,delayed release(DR/EC) 30 mg PO DAILY Qty: 90 1RF Lanzoprazole 30 mg PO .QD b12 concentrate See Rx Instructions .ROUTE .COMPLEX Rx Instructions: Take daily; magnesium See Rx Instructions .ROUTE .COMPLEX Rx Instructions: Take 1 tab daily; cholecalciferol (vitamin D3) 125 mcg (5,000 unit) capsule 125 mcg PO DAILY calcium carbonate [Calcium 600] 600 mg calcium (1,500 mg) tablet 600 mg PO DAILY amoxicillin 875 mg tablet 875 mg PO Q12H Qty: 14 0RF Referrals: Jeff Haas MD [Primary Care Provider] - Stand Alone Forms: Patient Portal/API/Survey
[2024-09-04 07:54] VITALS: BP 151/73; PULSE 72; RESP 18; TEMP 36.5; O2SAT 96; BMI 25.7
--- NOTE | 2024-09-04 08:07 | DI.CT.S_ITS ---
PROCEDURE: CT ABDOMEN PELVIS W CON INDICATIONS: LLQ pain, return, nontender TECHNIQUE: After the administration of intravenous contrast, axial sections acquired from the lung bases to the pubic symphysis. Coronal and sagittal reformats were performed. For radiation dose reduction, the following was used: automated exposure control, adjustment of mA and/or kV according to patient size. COMPARISON: [facility], CT, CT ABDOMEN PELVIS W CON, 12/31/2023, 9:49. [facility], CT, CT ABDOMEN PELVIS W CON, 09/01/2024, 7:36. FINDINGS: Image quality: Diagnostic. Lower Chest: No significant findings. ABDOMEN: Liver: No solid mass. Coarse calcification in segment 7. Gallbladder: No radiopaque gallstones or wall thickening. Biliary ducts: No biliary dilation. Pancreas: No ductal dilation. Spleen: Size is within normal limits. Adrenal Glands: Similar nodular thickening of the adrenal gland on the left . Kidneys and Ureters: No hydronephrosis. No solid mass. No complex renal cystic lesion which requires follow up. Stomach and Bowel: Normal colonic caliber, without significant wall thickening. Fecal debris within the small bowel. Appendectomy. Peritoneum: No abnormal intraperitoneal fluid. No free air. Ventral Wall: No significant ventral hernia. Abdominal Nodes: No retroperitoneal or mesenteric adenopathy by size criteria. Vessels: Aorta and inferior vena cava are normal in size. PELVIS: Pelvic Organs: Unremarkable. Bladder: No bladder wall thickening, accounting for underdistention. Pelvic Nodes: No enlarged lymph nodes. Miscellaneous: No inguinal hernias are seen. Bones: No aggressive osseous abnormality. Degenerative disc disease of the lumbar spine. Grade 1 anterolisthesis of L4 on L5 due to facet arthrosis. IMPRESSION: No acute abnormality. Fecal debris within the small-bowel, usually indicating small intestinal bacterial overgrowth versus slow transit. Dictated by: Kalen Gandara M.D. on 09/04/2024 at 8:56 Approved by: Kalen Gandara M.D. on 09/04/2024 at 9:01
[2024-09-04] MEDS: KETOROLAC 30 MG/ML VIAL 15 MG IV (08:16)
[2024-09-04] MEDS: cephALEXin 250 MG CAPSULE 500 MG PO (08:18)
[2024-09-04 08:34] LABS: Add Manual Diff / Slide Review NO; Basophils Absolute Auto 0 /uL (0-100); Basophils Percent Auto 0.8 % (0-2); Eosinophils Absolute Auto 100 /uL (0-450); Eosinophils Percent Auto 3.5 % (2-4); Hematocrit 39.2 % (36-46); Hemoglobin 13.1 g/dL (12.0-16.0); Lymphocytes Absolute Auto 1500 /uL (1100-4500); Lymphocytes Percent Auto 34.9 % (25-40); Mean Corpuscular HGB Conc 33.3 % (30-36); Mean Corpuscular Hemoglobin 31.4 PG (26-34); Mean Corpuscular Volume 94.1 fL (80-100); Monocytes Absolute Auto 400 /uL (0-900); Monocytes Percent Auto 9.4 % (3-14); Neutrophils Absolute Auto 2200 /uL (1500-7000); Neutrophils Percent Auto 51.4 % (50-75); Platelet Count 174 X10^3/uL (150-400); Red Blood Cell Count 4.17 X10^6/uL (4.0-5.2); Red Cell Distribution Width 13.2 % (11.6-14.8); White Blood Cell Count 4.2 X10^3/uL (4.5-11.0)
[2024-09-04 08:50] LABS: Alanine Aminotransferase 17 IU/L (<35); Albumin Globulin Ratio 1.5 (1.0-2.8); Alkaline Phosphatase 45 U/L (38-126); Aspartate Aminotransferase 24 IU/L (14-36); BUN Creatinine Ratio 14.3 (6-22); Bilirubin Total 0.4 mg/dL (0.2-1.3); Blood Urea Nitrogen 13 mg/dL (7-17); Calcium 8.9 mg/dL (8.4-10.2); Carbon Dioxide 24 mmol/L (22-32); Chloride 108 mmol/L (98-107); Estimated Glomerular Filt Rate > 60 mL/min (>60); Globulin 2.7 g/dL (1.7-4.1); Glucose 95 mg/dL (80-110); HEMOLYSIS < 15 (0-50); Lipase 107 U/L (23-300); Potassium 4.2 mmol/L (3.4-5.1); Sodium 138 mmol/L (137-145); Total Protein 6.7 g/dL (6.3-8.2)
== END 2024-09-04 09:31 | disposition home or self-care (01) ==
PROVIDERS: Emergency Provider Emergency Medicine; PCP Internal Medicine
DX: N39.0 Urinary tract infection, site not specified (principal)
CPT/HCPCS: 74177; 80053; 83690; 85025; 96374; 99283; 99285; J1885; Q9967

== ENCOUNTER → 2024-09-10 08:16 | Outpatient (CLI) | payer MEDICARE, SELFPAY ==
[2024-09-10 09:30] LABS: Cholesterol 244 mg/dL (140-199); HDL Cholesterol 61 mg/dL (40-60); LDL Cholesterol Calculated 158 mg/dL (<100); Triglycerides 123 mg/dL (35-150)
== END ==
PROVIDERS: PCP Internal Medicine; Referring Provider Internal Medicine; Visit Provider Internal Medicine
DX: E78.5 Hyperlipidemia, unspecified (principal)
CPT/HCPCS: 36415; 80061

== ENCOUNTER 2024-10-16 13:47 | Day surgery (SDC) | payer MEDICARE, SELFPAY ==
--- NOTE | 2024-10-16 | PATH_ITS ---
[facility] Accession Number: [id number] No. of containers..03 Tissue . 01 Material submitted: . PART A: duodenum - DUODENUM PART B: stomach - ANTRUM PART C: esophagus - ESOPHAGUS . 01 Diagnosis: A. DUODENUM, BIOPSY: Duodenal mucosa with no diagnostic abnormality. Negative for active inflammation, features of sprue, dysplasia, or malignancy. . B. GASTRIC ANTRUM, BIOPSY: Gastric antral mucosa with focal intestinal metaplasia. Negative for Helicobacter organisms by immunohistochemistry. Negative for dysplasia or malignancy. . C. ESOPHAGUS, BIOPSY: Squamocolumnar junctional mucosa with no diagnostic abnormality. Negative for intestinal metaplasia. Negative for dysplasia and malignancy. . [facility] 10/21/2024 1250 Local . 01 Electronically signed: . Gary Serna MD, PhD, Pathologist NPI- [id number] . 01 Gross description: . A. Received in formalin, labeled with two identifiers and duodenum, are two bruner soft tissue fragments measuring 0.3 cm each in greatest dimension. Submitted in cassette A1. B. Received in formalin, labeled with two identifiers and antrum, is a single bruner soft tissue fragment measuring 0.4 cm in greatest dimension. Submitted in cassette B1. C. Received in formalin, labeled with two identifiers and esophagus, are three bruner soft tissue fragments measuring 0.2-0.4 cm in greatest dimension. Submitted in cassette C1. ([id number]) /[facility] 10/18/2024 1438 Local . 01 Microscopic: . B. An immunohistochemical stain was performed to evaluate for Helicobacter organisms and is negative. The control stain showed appropriate reactivity. . * This test was developed and the performance characteristics were validated by [employer]. It has not been cleared or approved by the U.S. Food and Drug Administration. . 01 Pathologist provided ICD-10: R19.4, K31.A0 . 01 CPT . 253023, 605202, 762710, T96213 Specimen Comment: A courtesy copy of this report has been sent to [phone] Performed at: [address] [id number] MD Andres Hyde MD Phone: [phone]
[2024-10-16 14:25] VITALS: BP 115/62; PULSE 76; RESP 18; TEMP 36.1; O2SAT 92
[2024-10-16] MEDS: LACTATED RINGERS 1,000 ML 150 ML IV (14:49)
--- NOTE | 2024-10-16 15:13 | PM.PREOP ---
Pre-operative Note COVID-19 COVID-19 status: Not tested Interval Note History & Physical reviewed/Exam performed by Physician: Yes Changes to H&P: No ASA Class (for procedural sedation): II
--- NOTE | 2024-10-16 15:49 | PM.OP.EC ---
Operative Date/Time/Diagnoses Date of procedure: 10/16/24 Time of procedure: 15:49 Pre-op diagnosis: Abnormal imaging of the GI tract Post-op diagnosis: same Procedure & Clinicians Study performed: EGD and colonoscopy Same procedure as scheduled: Yes Surgeon: Montez Araya Procedure Notes Procedure in detail: Surgeon: Montez Araya MD Anesthesia: Mely Gaffney CRNA Procedure in detail: A timeout was performed. A bite blocked was placed and monitors were attached to the patient. The patient was positioned in the left lateral decubitus position. Sedation was administered. Once the patient was sedated the endoscope was inserted through the bite block and passed through the esophagus and stomach and into the duodenum. No abnormalities were seen. Random biopsies were taken from the duodenum with cold forceps. We then withdrew the scope into the stomach. There was mild antritis and random biopsies were taken from the antrum with cold forceps. The endoscope was retroflexed and no other abnormalities were seen. The endoscope was straightned and withdrawn into the esophagus. There were some mild inflammation of the distal esophagus and biopsies were taken with cold forceps. The rest of the esophagus appeared normal. EGD findings: Mild antritis and distal esophagitis Next we repositioned the patient for a colonoscopy. A digital rectal exam was performed and was normal. The colonoscope was inserted and advanced to the cecum. The appendiceal orifice was identified and photographed. The scope was slowly withdrawn over greater than 6 minutes. No abnormalities were found. The scope was retroflexed in the rectum and internal hemorrhoids were noted. Colonoscopy findings: Mild internal Total procedural EBL: 5 mL Scope withdrawal time: 7 minutes Sedation minutes: 28 minutes Post-procedure Disposition: PACU
[2024-10-16 15:52] VITALS: BP 102/55; PULSE 70; RESP 16; TEMP 36.6; O2SAT 95
[2024-10-16 15:57] VITALS: BP 93/51; PULSE 67; RESP 12; O2SAT 94
[2024-10-16 16:02] VITALS: BP 97/53; PULSE 65; RESP 13; O2SAT 95
[2024-10-16 16:07] VITALS: BP 97/53; PULSE 83; RESP 19; O2SAT 94
[2024-10-16 16:12] VITALS: BP 113/63; PULSE 57; RESP 16; TEMP 36.3; O2SAT 94
== END 2024-10-16 16:23 | disposition home or self-care (01) ==
PROVIDERS: PCP Internal Medicine; Referring Provider Surgery; Visit Provider Surgery
PROC: 0DJ08ZZ Inspection of Upper Intestinal Tract, Via Natural or Artificial Opening Endoscopic (ICD-10-PCS; CPT 43239; principal; 2024-10-16 15:15)
PROC: 0DJD8ZZ Inspection of Lower Intestinal Tract, Via Natural or Artificial Opening Endoscopic (ICD-10-PCS; CPT 45378; 2024-10-16 15:15)
DX: K31.A0 Gastric intestinal metaplasia, unspecified (principal); K64.8 Other hemorrhoids
CPT/HCPCS: 43239; 45378; J2405; J2704

== ENCOUNTER → 2025-04-22 07:59 | Outpatient (CLI) | payer MEDICARE, SELFPAY ==
--- NOTE | 2025-04-22 08:01 | DI.NM.S_ITS ---
PROCEDURE: NM EXERCISE TREADMILL NON NUC COMPARISON: None. INDICATIONS: Chest Pain FINDINGS: Patient exercised per the standard Darrell protocol. Total exercise time was 7 minutes and 11 seconds. Test was terminated secondary to fatigue. Maximum heart rate obtained was 139 beats per minute which is 101% of maximum predicted heart rate. Maximum blood pressure is 152/82[place] [address]. ABDULAZIZ-57%. 7.3 Mets. No ischemic changes noted. No arrhythmias present. No chest pains voice. Normal heart rate and blood pressure response to exercise. IMPRESSION: 1. Negative exercise treadmill stress test for ischemia. 2. Excellent exercise tolerance. Dictated by: Duke Andrews M.D. on 04/24/2025 at 12:12 Approved by: Duke Andrews M.D. on 06/19/2025 at 8:10
== END ==
LOC: NUCM 08:00
PROVIDERS: PCP Internal Medicine; Referring Provider Internal Medicine; Visit Provider Internal Medicine
DX: R07.9 Chest pain, unspecified (principal)
CPT/HCPCS: 93017

== ENCOUNTER 2025-06-09 08:14 | Emergency (ER) | payer MEDICARE, SELFPAY ==
[2025-06-09 08:50] VITALS: BP 121/83; PULSE 63; RESP 14; O2SAT 100; BMI 25.4
--- NOTE | 2025-06-09 08:54 | EKG_ITS ---
[facility] [address] [place] [address] Test Date: 2025-06-09 Pat Name: Asia Rivera Department: [facility] Room: Gender: Female [employer]: : 1940 Requested By: Order Number: [id number] Reading MD: Jeff Haas MD Measurements Intervals [place] Rate: 53 P: 22 NH: 162 QRS: -22 QRSD: 88 T: 36 QT: 430 QTc: 403 Interpretive Statements Sinus bradycardia Low voltage QRS Septal infarct , age undetermined Electronically Signed On 06-09-2025 12:00:34 PST by Jeff Haas MD
--- NOTE | 2025-06-09 08:54 | DI.RAD.S_ITS ---
PROCEDURE: XR CHEST 1V INDICATIONS: Chest Pain TECHNIQUE: One view of the chest was acquired. COMPARISON: [facility], CR, XR CHEST 1V, 06/10/2024, 14:25. FINDINGS: Surgical changes and devices: None. Lungs and pleura: Lungs are clear. No pleural effusions or pneumothorax. Mediastinum: Mediastinal contours appear normal. Heart size is normal. Bones and chest wall: No suspicious bony lesions. Overlying soft tissues appear unremarkable. IMPRESSION: No acute cardiopulmonary pathology. Dictated by: Juancarlos Andrews M.D. on 06/09/2025 at 9:17 Approved by: Juancarlos Andrews M.D. on 06/09/2025 at 9:20
--- NOTE | 2025-06-09 09:01 | ED.CHESTPAIN ---
HPI - Chest Pain General Chief Complaint: Chest Pain Stated Complaint: Sent from [facility] , front shoulder pain Time Seen by Provider: 06/09/25 08:56 Source: patient Mode of arrival: Ambulatory Limitations: no limitations History of Present Illness HPI narrative: This is an 84-year-old female her primary care doctor is Dr. Kline. She will be referred to a history of gastroesophageal reflux and says that she is only on omeprazole. She is referred to urgent Care for chief complaint of chest pain. Says that she has been having chest pain at night for months. Happened when she tries to go to sleep. Does described as chest pressure. It is in the middle. It is not associated with shortness of breath or nausea. She does not have exertional chest pain she is not having chest pain when seen. No fevers or cough no GI symptoms. Related Data Home Medications ?Medication ?Instructions ?Recorded ?Confirmed b12 concentrate See Rx Instructions .Route .COMPLEX 11/07/23 03/25/25 magnesium See Rx Instructions .Route .COMPLEX 11/07/23 03/25/25 calcium carbonate (Calcium 600) 600 mg PO DAILY 01/09/24 03/25/25 cholecalciferol (vitamin D3) 125 125 mcg PO DAILY 01/09/24 03/25/25 mcg (5,000 unit) capsule fluocinonide 0.05 % topical topical 04/16/24 03/25/25 solution ketoconazole 2 % shampoo topical 04/16/24 03/25/25 ofloxacin 0.3 % ear drops drp otic (ear) 04/16/24 03/25/25 Previous Rx's ?Medication ?Instructions ?Recorded fluticasone propionate 50 1 spray intranasal Q12H #48 grams 04/16/24 mcg/actuation nasal spray,suspension clobetasol 0.05 % topical ointment 1 applic topical DAILY #60 grams 10/06/24 lansoprazole 30 mg capsule,delayed 30 mg PO DAILY #90 caps 12/25/24 release famotidine 20 mg tablet 20 mg PO BEDTIME #30 tabs 06/09/25 Allergies Allergy/AdvReac Type Severity Reaction Status Date / Time No Known Allergies Allergy Uncoded 06/09/25 08:50 Patient History Medical History Osteopenia after menopause Hearing loss (~1985) GERD (gastroesophageal reflux disease) Surgical History Anesthesia History of appendectomy (~1949) Cholesteatoma (~1985) Family History Father History of heart disease Mother Cancer Brother History of kidney disease Social History Smoking Status: Unknown if ever smoked alcohol intake: current Smoking Status: Unknown if ever smoked alcohol intake frequency: 0-2 drinks per day Alcohol type: wine Exam Initial Vital Signs Initial Vital Signs: Vital Signs Pulse Rate 63 06/09/25 08:50 Respiratory Rate 14 06/09/25 08:50 Blood Pressure 121/83 06/09/25 08:50 Pulse Oximetry 100 06/09/25 08:50 Oxygen Delivery Method Room Air 06/09/25 08:50 vital signs are reviewed Const General: cooperative and No acute distress HENWV Head: normocephalic and atraumatic Face and sinus: face symmetric Mouth: moist mucous membranes Eyes Pupils: PERRL EOM: EOM intact bilaterally Neck Neck: normal visual inspection, supple and No JVD Chest Chest: normal inspection of the chest Resp Effort & Inspection: normal respiratory effort and able to speak in complete sentences Auscultation: clear to auscultation bilaterally Cardio Rate: regular rate Rhythm: regular rhythm Heart Sounds: no murmurs Other: Normal heart rate GI Inspection: normal to inspection Palpation: soft Auscultation: normal bowel sounds Back/Spine/Pelvis Back: normal to inspection Skin General: no rashes or lesions noted and warm Neuro General: patient alert, patient oriented x3 and moves all extremities Speech: speech normal Extrem General: full ROM Psych Appearance: grossly normal Course Orders Ordered: ED Orders 06/09/25 08:54 XR chest 1V Stat EKG-12 Lead Stat 06/09/25 08:58 Complete Blood Count AUTO DIFF Stat Comprehensive Metabolic Panel Stat Lipase Stat Magnesium Stat NT-proBNP (BNP-Adult 18+) Stat PTT Partial Thromboplastin Curt Stat Prothrombin Time INR Stat Troponin & CK Cardiac Panel Stat Discontinued Medications Aspirin (Aspirin 81 Mg Chew Tab) 324 mg PO NOW ONE Stop: 06/09/25 08:55 Last Admin: 06/09/25 12:31 Dose: Not Given Documented By: NATE Vital Signs Vital signs: Vital Signs - 8 hr 06/09/25 08:50 06/09/25 11:14 06/09/25 11:14 Pulse Rate 63 60 Respiratory Rate 14 Blood Pressure 121/83 151/70 H Pulse Oximetry 100 97 Oxygen Delivery Method Room Air 06/09/25 11:30 06/09/25 11:31 06/09/25 11:31 Pulse Rate 68 68 Respiratory Rate Blood Pressure 142/70 H Pulse Oximetry 94 94 Oxygen Delivery Method 06/09/25 12:00 06/09/25 12:00 Pulse Rate 54 L Respiratory Rate Blood Pressure 138/65 Pulse Oximetry 95 Oxygen Delivery Method MDM - Chest Pain Lab Data Lab results narrative: Normal troponin, troponin not trended, her symptoms for last night. Chemistries are reassuring lipase is normal 06/09/25 08:58 06/09/25 08:58 Labs: Lab Results 06/09/25 Range/Units 08:58 WBC 5.1 (4.5-11.0) X10^3/uL RBC 4.23 (4.0-5.2) X10^6/uL Hgb 13.3 (12.0-16.0) g/dL Hct 39.6 (36-46) % MCV 93.7 (80-100) fL MCH 31.4 (26-34) PG MCHC 33.6 (30-36) % RDW 13.3 (11.6-14.8) % Plt Count 177 (150-400) X10^3/uL Neut % (Auto) 50.8 (50-75) % Lymph % (Auto) 36.4 (25-40) % [place] % (Auto) 8.2 (3-14) % Eos % (Auto) 4.0 (2-4) % Baso % (Auto) 0.6 (0-2) % Neut # (Auto) 2600 (8196-0646) /uL Lymph # (Auto) 1800 (7613-2486) /uL [place] # (Auto) 400 (0-900) /uL Eos # (Auto) 200 (0-450) /uL Baso # (Auto) 0 (0-100) /uL PT 10.7 (9.4-12.5) SECONDS INR 0.9 (0.9-1.3) APTT 25 L (25.1-36.5) SECONDS Sodium 139 (137-145) mmol/L Potassium 4.4 (3.4-5.1) mmol/L Chloride 106 (98-107) mmol/L Carbon Dioxide 26 (22-32) mmol/L BUN 18 H (7-17) mg/dL Creatinine 0.92 (0.52-1.04) mg/dL Estimated GFR > 60 (>60) mL/min BUN/Creatinine Ratio 19.6 (6-22) Glucose 90 (70-99) mg/dL Calcium 9.1 (8.4-10.2) mg/dL Magnesium 2.0 (1.6-2.3) mg/dL Total Bilirubin 0.3 (0.2-1.3) mg/dL AST 24 (14-36) IU/L ALT 15 (<35) IU/L Alkaline Phosphatase 50 (38-126) U/L Total Creatine Kinase 76 (30-135) U/L Troponin I < 0.012 (0.01-0.034) ng/mL NT-Pro-B Natriuret Pep 177 (<450) pg/mL Total Protein 7.2 (6.3-8.2) g/dL Albumin 4.3 (3.5-5.0) g/dL Globulin 2.9 (1.7-4.1) g/dL Albumin/Globulin Ratio 1.5 (1.0-2.8) Lipase 124 (23-300) U/L Imaging Data Chest x-ray: My Impression: Independently reviewed, no acute findings Radiologist's Impression: Radiology report indicates no acute abnormalities ECG Data Attestation: I personally reviewed and interpreted this ECG as follows: (Normal sinus rhythm. 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 EKG from May 2024 also reports septal infarct.) MDM Narrative Medical decision making narrative: Heart score: 0 for a slightly suspicious history, 0 for EKG, no repolarization disturbance, +2 for age, +1 for risk factors, troponin is normal. 84-year-old female with chest pain that has been occurring at night for quite some time now. She has a history of gastroesophageal reflux, has been worked up for coronary disease in the past with a previous negative cardiac catheterization that occurred less than 2 years ago. Troponin today is normal. I considered but do not suspect pulmonary embolism or cholecystitis. Patient was offered admission for further testing although it seemed unlikely that a stress test would be revealing. Patient preferred to go home. I did add famotidine to her proton pump inhibitor the PPI will be taken during the day and famotidine at night. She is to follow up with her primary care provider. Discharge Plan Departure Patient Disposition: Home Clinical Impression: Atypical chest pain Activity Restrictions/Additional Instructions: Emergency department evaluation today is reassuring. I can not be sure that the chest pain you are experiencing is from your heart although I do not think it is. I did recommend admission for further testing which you have declined. It may be that this is a worsening of your esophageal reflux. Keep taking your lansoprazole. I want you to start famotidine and take this in the evening. Follow up soon with her regular primary care provider. Prescriptions: New famotidine 20 mg tablet 20 mg PO BEDTIME Qty: 30 0RF No Action ketoconazole 2 % shampoo topical ofloxacin 0.3 % drops otic (ear) Patient Comments: [NO ORIGINAL SIG] fluocinonide 0.05 % solution topical fluticasone propionate 50 mcg/actuation spray,suspension 1 spray intranasal Q12H Qty: 48 0RF lansoprazole 30 mg capsule,delayed release(DR/EC) 30 mg PO DAILY Qty: 90 1RF b12 concentrate See Rx Instructions .ROUTE .COMPLEX Rx Instructions: Take daily; magnesium See Rx Instructions .ROUTE .COMPLEX Rx Instructions: Take 1 tab daily; cholecalciferol (vitamin D3) 125 mcg (5,000 unit) capsule 125 mcg PO DAILY calcium carbonate [Calcium 600] 600 mg calcium (1,500 mg) tablet 600 mg PO DAILY clobetasol 0.05 % ointment 1 applic topical DAILY Qty: 60 1RF Referrals: Jeff Haas MD [Primary Care Provider, Internal Medicine] Stand Alone Forms: Patient Portal/API
--- NOTE | 2025-06-09 09:02 | PC.NURSE ---
CHest pain at night after trying to go to bed for months. Patient take omeprazole for reflux. Denies pain at present. Denies SOB
[2025-06-09 09:24] LABS: Add Manual Diff / Slide Review NO; Hematocrit 39.6 % (36-46); Hemoglobin 13.3 g/dL (12.0-16.0); Lymphocytes Absolute Auto 1800 /uL (1100-4500); Mean Corpuscular HGB Conc 33.6 % (30-36); Mean Corpuscular Hemoglobin 31.4 PG (26-34); Mean Corpuscular Volume 93.7 fL (80-100); Platelet Count 177 X10^3/uL (150-400)
[2025-06-09 09:32] LABS: INR 0.9 (0.9-1.3); Prothrombin Time 10.7 SECONDS (9.4-12.5)
[2025-06-09 09:35] LABS: PTT Partial Thromboplastin Tim 25 SECONDS (25.1-36.5)
[2025-06-09 09:36] LABS: Alanine Aminotransferase 15 IU/L (<35); Albumin 4.3 g/dL (3.5-5.0); Albumin Globulin Ratio 1.5 (1.0-2.8); Alkaline Phosphatase 50 U/L (38-126); Blood Urea Nitrogen 18 mg/dL (7-17); Calcium 9.1 mg/dL (8.4-10.2); Carbon Dioxide 26 mmol/L (22-32); Chloride 106 mmol/L (98-107); Creatine Kinase 76 U/L (30-135); Estimated Glomerular Filt Rate > 60 mL/min (>60); Globulin 2.9 g/dL (1.7-4.1); Glucose 90 mg/dL (70-99); HEMOLYSIS < 15 (0-50); Lipase 124 U/L (23-300); Magnesium 2.0 mg/dL (1.6-2.3); Potassium 4.4 mmol/L (3.4-5.1); Sodium 139 mmol/L (137-145); Total Protein 7.2 g/dL (6.3-8.2)
[2025-06-09 09:48] LABS: NT-proBNP (BNP-Adult 18+) 177 pg/mL (<450); Troponin I < 0.012 ng/mL (0.01-0.034)
[2025-06-09 11:14] VITALS: BP 151/70; PULSE 60; O2SAT 97
[2025-06-09 11:30] VITALS: PULSE 68; O2SAT 94
[2025-06-09 11:31] VITALS: BP 142/70; PULSE 68; O2SAT 94
[2025-06-09 12:00] VITALS: BP 138/65; PULSE 54; O2SAT 95
== END 2025-06-09 12:32 | disposition home or self-care (01) ==
PROVIDERS: Emergency Provider Emergency Medicine; PCP Internal Medicine
DX: R07.89 Other chest pain (principal)
CPT/HCPCS: 36415; 71045; 80053; 82550; 83690; 83735; 83880; 84484; 85025; 85610; 85730; 93005; 99284